=== PATIENT | female | born 1935 | race Caucasian/White ===

== ENCOUNTER 2017-03-06 19:25 | Emergency (ER) | payer MEDICARE, OTHER ==
[~2017-03-06] VITALS: Ht 165.1 cm; Wt 73.9 kg
[~2017-03-06 19:25] MED LIST: CALCAVITD PO; DILT120ERA PO; ELIQUIS5 MG PO; FLONASE ALLERG9.9 ML; LATA.005SO BOTHEYES; LATA.005SO RIGHTEYE; METO50 PO; MULVITMIND PO; Nystatin15 GM TOP; OMEP20ER PO; PRAV20 PO; VIT1CAPS12 PO; Vitamin C1000 M1 PO
[2017-03-06 20:48] LABS: Source, Urine Urostomy Bag
[2017-03-06 20:52] LABS: Bilirubin, Urine Neg (Neg); Blood, Urine 5+ (Neg); Glucose Qualitative, Urine Neg (Neg); Ketones, Urine Neg (Neg); Leukocyte Esterase, Urine 2+ (Neg); Nitrite, Urine Neg (Neg); Protein, Urine 2+ (Neg); Urobilinogen, Urine NORM (Normal)
[2017-03-06 21:01] LABS: Appearance, Urine Cloudy (Clear); Color, Urine Amber (P-Yellow)
[2017-03-06 21:03] LABS: Amorphous Light (0-Heavy); Bacteria Many /hpf; Red Blood Cells, Urine 25-50 /hpf (0-2); Squamous Epithelial Cells Not Seen /hpf (Few)
[2017-03-06] MEDS ORDERED: Keflex500 MG PO (22:33)
[2017-12-20] MEDS ORDERED: METO25ER PO (14:13)
[2017-12-20] MEDS ORDERED: ELIQUIS5 MG PO (14:14)
[2017-12-20] MEDS ORDERED: METO25 PO (14:14)
[2017-12-20] MEDS ORDERED: METO50 PO (14:14)
[2017-12-20] MEDS ORDERED: Xalatan2.5 ML BOTHEYES (14:15)
[2017-12-20] MEDS ORDERED: Multiple Vitam1 EACH PO (14:15)
[2017-12-20] MEDS ORDERED: ASCO500 PO (14:15)
== END 2017-03-06 22:45 | disposition home or self-care (01) ==
LOC: ER 19:25
PROVIDERS: Emergency Medicine
DX: N39.0 Urinary tract infection, site not specified (principal); R31.9 Hematuria, unspecified; I48.91 Unspecified atrial fibrillation; Z88.2 Allergy status to sulfonamides; Z88.8 Allergy status to other drugs, medicaments and biological substances; Z79.899 Other long term (current) drug therapy; Z87.891 Personal history of nicotine dependence
CPT/HCPCS: 81001; 87077; 87086; 87186; 99283

== ENCOUNTER → 2017-09-21 | Outpatient (CLI) | payer MEDICARE, OTHER ==
[~2017-09-21] MED LIST changes: +Keflex500 MG PO
== END ==
LOC: LAB SHORT 13:05 → LAB EV 13:05
DX: N39.0 Urinary tract infection, site not specified (principal)
CPT/HCPCS: 87077; 87086; 87186

== ENCOUNTER → 2017-09-22 | Outpatient (CLI) | payer MEDICARE, OTHER ==
[2017-09-22 12:07] LABS: Source, Urine Clean Catch
[2017-09-22 14:53] LABS: Bilirubin, Urine Neg (Neg); Blood, Urine 3+ (Neg); Glucose Qualitative, Urine Neg (Neg); Ketones, Urine Neg (Neg); Leukocyte Esterase, Urine 1+ (Neg); Nitrite, Urine Pos (Neg); Protein, Urine Neg (Neg); Specific Gravity, Urine 1.015 (1.003-1.022); Urobilinogen, Urine NORM (Normal)
[2017-09-22 15:07] LABS: Appearance, Urine Hazy (Clear); Color, Urine Yellow (P-Yellow)
[2017-09-22 15:09] LABS: Red Blood Cells, Urine 0-2 /hpf (0-2)
[2017-09-22 15:10] LABS: Bacteria Many /hpf; Squamous Epithelial Cells Few /hpf (Few)
== END ==
LOC: LAB 11:58 → LAB SHORT 11:58
PROVIDERS: Physician Assistant
DX: N39.0 Urinary tract infection, site not specified (principal)
CPT/HCPCS: 81001

== ENCOUNTER 2018-12-07 09:04 | Emergency (ER) | payer MEDICARE, OTHER ==
[~2018-12-07] VITALS: Ht 165.1 cm; Wt 72.6 kg
[~2018-12-07 09:04] MED LIST changes: +ASCO500 PO; +METO25 PO; +METO25ER PO; +Multiple Vitam1 EACH PO; +Xalatan2.5 ML BOTHEYES
[2018-12-07 09:41] LABS: BASOPHILS ABSOLUTE AUTO 0.03 K/mm3 (0.00-0.23); BASOPHILS PERCENT AUTO 0 % (0-2); EOSINOPHILS ABSOLUTE AUTO 0.06 K/mm3 (0.00-0.68); EOSINOPHILS PERCENT AUTO 1 % (0-6); Hematocrit 42.3 % (33.0-51.0); Hemoglobin 13.7 g/dL (11.5-16.0); IMMATURE GRAN ABSOLUTE AUTO 0.03 K/mm3 (0.00-0.10); IMMATURE GRAN PERCENT AUTO 0 % (0-1); LYMPHOCYTES ABSOLUTE AUTO 1.87 K/mm3 (0.84-5.20); LYMPHOCYTES PERCENT AUTO 23 % (21-46); MONOCYTES ABSOLUTE AUTO 0.72 K/mm3 (0.16-1.47); MONOCYTES PERCENT AUTO 9 % (4-13); Mean Corpuscular HGB 31.2 pg (26.0-34.0); Mean Corpuscular HGB Conc 32.4 g/dL (31.5-36.5); Mean Corpuscular Volume 96 fL (80-100); Mean Platelet Volume 11.8 fL (9.1-12.4); NEUTROPHILS ABSOLUTE AUTO 5.34 K/mm3 (1.96-9.15); NEUTROPHILS PERCENT AUTO 66 % (41-73); Platelet Count 204 K/mm3 (150-400); RDW Coefficient Variation 13.2 % (11.7-14.2); RDW Standard Deviation 47.1 fL (35.1-46.3); Red Blood Cell Count 4.39 M/mm3 (3.80-5.20); White Blood Cell Count 8.05 K/mm3 (4.00-11.30)
[2018-12-07 09:54] LABS: Alanine Aminotransfer (ALT/SGP 21 U/L (12-78); Albumin, Blood 3.4 g/dL (3.4-5.0); Albumin/Globulin Ratio 0.9 (0.8-1.8); Alk Phos 66 U/L (50-136); Anion Gap 7 mmol/L (6-16); Aspartate Aminotrans (AST/SGOT 22 U/L (12-37); Bilirubin, Total 0.6 mg/dL (0.1-1.0); Blood Urea Nitrogen 17 mg/dL (8-24); Bun/Creatinine Ratio 12.7 (12.0-20.0); CO2, Blood 23 mmol/L (21-32); Calcium, Blood 8.5 mg/dL (8.5-10.1); Chloride, Blood 111 mmol/L (98-108); Creatinine, Blood 1.34 mg/dL (0.40-1.00); Globulin, Blood 3.6 g/dL (2.2-4.0); Glomerular Filtration Rate 40 (60-); Glucose, Blood 110 mg/dL (70-99); Magnesium, Blood 1.9 mg/dL (1.6-2.4); Potassium, Blood 4.1 mmol/L (3.5-5.5); Sodium, Blood 141 mmol/L (136-145); Troponin I <0.015 ng/mL (0.000-0.040)
== END 2018-12-07 11:28 | disposition home or self-care (01) ==
LOC: ER 09:04
PROVIDERS: Emergency Medicine
DX: I48.91 Unspecified atrial fibrillation (principal); Z88.2 Allergy status to sulfonamides; Z88.8 Allergy status to other drugs, medicaments and biological substances; Z79.01 Long term (current) use of anticoagulants; Z79.899 Other long term (current) drug therapy; Z87.891 Personal history of nicotine dependence
CPT/HCPCS: 36415; 80053; 83735; 84484; 85025; 92960; 93005; 93010; 96360-59; 99285-25; J2704; J7030

== ENCOUNTER 2019-02-21 09:43 | Emergency (ER) | payer MEDICARE, OTHER ==
[~2019-02-21] VITALS: Ht 170.2 cm; Wt 81.7 kg
[~2019-02-21 09:43] MED LIST changes: -METO25 PO
[2019-02-21 10:27] LABS: BASOPHILS ABSOLUTE AUTO 0.03 K/mm3 (0.00-0.23); BASOPHILS PERCENT AUTO 0 % (0-2); EOSINOPHILS ABSOLUTE AUTO 0.04 K/mm3 (0.00-0.68); EOSINOPHILS PERCENT AUTO 0 % (0-6); Hemoglobin 13.2 g/dL (11.5-16.0); IMMATURE GRAN ABSOLUTE AUTO 0.03 K/mm3 (0.00-0.10); IMMATURE GRAN PERCENT AUTO 0 % (0-1); LYMPHOCYTES PERCENT AUTO 18 % (21-46); MONOCYTES ABSOLUTE AUTO 0.67 K/mm3 (0.16-1.47); MONOCYTES PERCENT AUTO 7 % (4-13); Mean Corpuscular HGB Conc 32.2 g/dL (31.5-36.5); Mean Corpuscular Volume 96 fL (80-100); Mean Platelet Volume 11.8 fL (9.1-12.4); NEUTROPHILS ABSOLUTE AUTO 6.99 K/mm3 (1.96-9.15); NEUTROPHILS PERCENT AUTO 74 % (41-73); Platelet Count 193 K/mm3 (150-400); RDW Standard Deviation 46.4 fL (35.1-46.3); Red Blood Cell Count 4.26 M/mm3 (3.80-5.20); White Blood Cell Count 9.46 K/mm3 (4.00-11.30)
[2019-02-21 10:42] LABS: Albumin, Blood 3.3 g/dL (3.4-5.0); Albumin/Globulin Ratio 0.9 (0.8-1.8); Bilirubin, Total 0.5 mg/dL (0.1-1.0); Bun/Creatinine Ratio 12.6 (12.0-20.0); Calcium, Blood 8.4 mg/dL (8.5-10.1); Creatinine, Blood 1.11 mg/dL (0.40-1.00); Globulin, Blood 3.5 g/dL (2.2-4.0); Potassium, Blood 3.9 mmol/L (3.5-5.5); Total Protein, Blood 6.8 g/dL (6.4-8.2)
== END 2019-02-21 13:20 | disposition home or self-care (01) ==
LOC: ER 09:43
PROVIDERS: Emergency Medicine
DX: I48.91 Unspecified atrial fibrillation (principal); Z88.2 Allergy status to sulfonamides; Z88.8 Allergy status to other drugs, medicaments and biological substances; Z79.899 Other long term (current) drug therapy; Z79.01 Long term (current) use of anticoagulants; Z87.891 Personal history of nicotine dependence
CPT/HCPCS: 36415; 71045; 80053; 83735; 85025; 92960; 93005; 93010; 96361-59; 96374-59; 96375-59; 99285-25; J2704; J3010; J7030

== ENCOUNTER 2019-03-01 13:02 | Emergency (ER) | payer MEDICARE, OTHER ==
[~2019-03-01] VITALS: Ht 167.6 cm; Wt 80.3 kg
[2019-03-01 13:57] LABS: BASOPHILS ABSOLUTE AUTO 0.03 K/mm3 (0.00-0.23); BASOPHILS PERCENT AUTO 0 % (0-2); EOSINOPHILS ABSOLUTE AUTO 0.08 K/mm3 (0.00-0.68); EOSINOPHILS PERCENT AUTO 1 % (0-6); Hematocrit 38.5 % (33.0-51.0); Hemoglobin 12.4 g/dL (11.5-16.0); IMMATURE GRAN ABSOLUTE AUTO 0.02 K/mm3 (0.00-0.10); IMMATURE GRAN PERCENT AUTO 0 % (0-1); LYMPHOCYTES ABSOLUTE AUTO 1.91 K/mm3 (0.84-5.20); LYMPHOCYTES PERCENT AUTO 24 % (21-46); MONOCYTES PERCENT AUTO 10 % (4-13); Mean Corpuscular HGB 30.6 pg (26.0-34.0); Mean Corpuscular HGB Conc 32.2 g/dL (31.5-36.5); Mean Corpuscular Volume 95 fL (80-100); Mean Platelet Volume 11.7 fL (9.1-12.4); NEUTROPHILS ABSOLUTE AUTO 5.03 K/mm3 (1.96-9.15); NEUTROPHILS PERCENT AUTO 64 % (41-73); Platelet Count 197 K/mm3 (150-400); RDW Coefficient Variation 13.1 % (11.7-14.2); RDW Standard Deviation 45.4 fL (35.1-46.3); Red Blood Cell Count 4.05 M/mm3 (3.80-5.20); White Blood Cell Count 7.87 K/mm3 (4.00-11.30)
[2019-03-01 14:17] LABS: Alanine Aminotransfer (ALT/SGP 18 U/L (12-78); Albumin, Blood 3.3 g/dL (3.4-5.0); Albumin/Globulin Ratio 0.9 (0.8-1.8); Alk Phos 78 U/L (50-136); Anion Gap 7 mmol/L (6-16); Aspartate Aminotrans (AST/SGOT 12 U/L (12-37); Bilirubin, Total 0.3 mg/dL (0.1-1.0); Blood Urea Nitrogen 16 mg/dL (8-24); Bun/Creatinine Ratio 14.3 (12.0-20.0); CO2, Blood 22 mmol/L (21-32); Calcium, Blood 8.6 mg/dL (8.5-10.1); Chloride, Blood 112 mmol/L (98-108); Creatinine, Blood 1.12 mg/dL (0.40-1.00); Globulin, Blood 3.5 g/dL (2.2-4.0); Glomerular Filtration Rate 49 (60-); Glucose, Blood 129 mg/dL (70-99); Sodium, Blood 141 mmol/L (136-145); Total Protein, Blood 6.8 g/dL (6.4-8.2); Troponin I <0.015 ng/mL (0.000-0.040)
[2019-03-01] MEDS ORDERED: TRIPLE FLEX CA1 EACH PO (14:25)
[2019-03-01] MEDS ORDERED: GLUC500 PO (14:25)
[2019-03-01] MEDS ORDERED: VIT1CAPS12 PO (14:25)
[2019-03-01] MEDS ORDERED: ASCO500 PO (14:26)
== END 2019-03-01 17:45 | disposition home or self-care (01) ==
LOC: ER 13:02
PROVIDERS: Emergency Medicine
DX: I48.91 Unspecified atrial fibrillation (principal); G47.30 Sleep apnea, unspecified; Z88.2 Allergy status to sulfonamides; Z88.8 Allergy status to other drugs, medicaments and biological substances; Z79.899 Other long term (current) drug therapy
CPT/HCPCS: 36415; 80053; 84484; 85025; 93005; 93010; 99285-25

== ENCOUNTER 2019-03-10 09:39 | Inpatient (IN) | payer MEDICARE, OTHER ==
[~2019-03-10] VITALS: Ht 165.1 cm; Wt 77.2 kg
[~2019-03-10 09:39] MED LIST changes: +GLUC500 PO; +TRIPLE FLEX CA1 EACH PO
[2019-03-10] MEDS ORDERED: Flecainide Acet50 MG PO ×2 (10:14→11:50)
[2019-03-10 10:35] LABS: BASOPHILS ABSOLUTE AUTO 0.03 K/mm3 (0.00-0.23); BASOPHILS PERCENT AUTO 0 % (0-2); EOSINOPHILS ABSOLUTE AUTO 0.02 K/mm3 (0.00-0.68); EOSINOPHILS PERCENT AUTO 0 % (0-6); Hematocrit 40.3 % (33.0-51.0); Hemoglobin 13.3 g/dL (11.5-16.0); IMMATURE GRAN ABSOLUTE AUTO 0.02 K/mm3 (0.00-0.10); IMMATURE GRAN PERCENT AUTO 0 % (0-1); LYMPHOCYTES PERCENT AUTO 18 % (21-46); MONOCYTES ABSOLUTE AUTO 0.64 K/mm3 (0.16-1.47); MONOCYTES PERCENT AUTO 8 % (4-13); Mean Corpuscular Volume 94 fL (80-100); Mean Platelet Volume 11.7 fL (9.1-12.4); NEUTROPHILS ABSOLUTE AUTO 5.59 K/mm3 (1.96-9.15); NEUTROPHILS PERCENT AUTO 73 % (41-73); Platelet Count 233 K/mm3 (150-400); RDW Coefficient Variation 13.1 % (11.7-14.2); RDW Standard Deviation 44.3 fL (35.1-46.3); Red Blood Cell Count 4.29 M/mm3 (3.80-5.20)
[2019-03-10 10:47] LABS: Albumin, Blood 3.6 g/dL (3.4-5.0); Bilirubin, Total 0.5 mg/dL (0.1-1.0); Bun/Creatinine Ratio 17.2 (12.0-20.0); Calcium, Blood 9.1 mg/dL (8.5-10.1); Creatinine, Blood 1.22 mg/dL (0.40-1.00); Globulin, Blood 3.7 g/dL (2.2-4.0); Potassium, Blood 3.7 mmol/L (3.5-5.5); Total Protein, Blood 7.3 g/dL (6.4-8.2)
[2019-03-10] MEDS ORDERED: FOSAMAX70 MG PO (15:52)
[2019-03-10] MEDS ORDERED: FLAXSEED1000 MG PO (15:53)
[2019-03-10] MEDS ORDERED: PRESERVISION L1 EACH PO (15:55)
[2019-03-10] MEDS ORDERED: VITAMIN D32000 UNI3 PO (15:57)
--- NOTE | 2019-03-11 03:54 | NUR ---
SHIFT SUMMARY PT A&O X 3; PLEASANT & COMPLIANT W/ CARE; O2 SATS >93 ON RA; LUNG SOUNDS CLEAR; DIM IN BASES; UROSTOMY RUQ PT CALLS APPROPRIATELY FOR EMPTYING; BEEFY RED STOMA; DENIES CHEST PAIN; VSS; DR. PETERS AT BEDSIDE AT START OF SHIFT; ORDERED ECG; PERFORMED AT BEDSIDE; BLOOD THINNERS TO BE HELD FOR PROCEDURE; PT NPO AT MIDNIGHT IN PREP FOR PACER PLACEMENT; PT STATES SHE IS EAGER FOR PROCEDURE; DENIES SYMPTOMS AT THIS TIME; CALL LIGHT IN REACH; BED IN LOWEST POSITION; BED ALARM ON FOR SAFETY; WILL CONTINUE TO MONITOR CLOSELY UNTIL HAND OFF TO DAY SHIFT RN.
[2019-03-11 04:19] LABS: Bun/Creatinine Ratio 20.5 (12.0-20.0); Calcium, Blood 8.6 mg/dL (8.5-10.1); Creatinine, Blood 1.22 mg/dL (0.40-1.00); Potassium, Blood 4.5 mmol/L (3.5-5.5)
--- NOTE | 2019-03-11 12:00 | NUR ---
PT TO THE CENTER FOR PACER PLACEMENT. SHE IS AWAKE,ALERT & ORIENTED AT THIS TIME. PT'S IS AT THE BEDSIDE. PT DENIES ANY CP/SOB,VSS.
--- NOTE | 2019-03-11 17:21 | NUR ---
SHIFT SUMMARY PT WENT FOR PACER PLACEMENT TODAY. PACE MAKER IS PLACED TO THE LEFT CHEST WALL, RSG REMAINS C/D/I, NO S/S OF HEMATOMA NOTED AT OR AROUND THE SITE. PT WAS GIVEN TYLENOL FOR MINOR MUSCLE DISCOMFORT. SHE CONTINUES TO DENY CP/SOB. VSS, ON ROOM AIR, SBA IN THE ROOM. BED ALARM IS ON FOR SAFETY DUE TO OCCASIONAL FORGETFULNESS. PT'S IS AT THE BEDSIDE. CALL LIGHT IN REACH, WCTM
[2019-03-12 05:50] LABS: BASOPHILS ABSOLUTE AUTO 0.03 K/mm3 (0.00-0.23); BASOPHILS PERCENT AUTO 0 % (0-2); EOSINOPHILS ABSOLUTE AUTO 0.07 K/mm3 (0.00-0.68); EOSINOPHILS PERCENT AUTO 1 % (0-6); Hematocrit 40.2 % (33.0-51.0); Hemoglobin 13.2 g/dL (11.5-16.0); IMMATURE GRAN ABSOLUTE AUTO 0.02 K/mm3 (0.00-0.10); IMMATURE GRAN PERCENT AUTO 0 % (0-1); LYMPHOCYTES ABSOLUTE AUTO 1.29 K/mm3 (0.84-5.20); LYMPHOCYTES PERCENT AUTO 17 % (21-46); MONOCYTES ABSOLUTE AUTO 0.82 K/mm3 (0.16-1.47); MONOCYTES PERCENT AUTO 11 % (4-13); Mean Corpuscular HGB 30.9 pg (26.0-34.0); Mean Corpuscular HGB Conc 32.8 g/dL (31.5-36.5); Mean Corpuscular Volume 94 fL (80-100); Mean Platelet Volume 11.6 fL (9.1-12.4); NEUTROPHILS ABSOLUTE AUTO 5.49 K/mm3 (1.96-9.15); NEUTROPHILS PERCENT AUTO 71 % (41-73); Platelet Count 194 K/mm3 (150-400); RDW Coefficient Variation 12.7 % (11.7-14.2); Red Blood Cell Count 4.27 M/mm3 (3.80-5.20); White Blood Cell Count 7.72 K/mm3 (4.00-11.30)
[2019-03-12 06:04] LABS: Prothrombin Time Results 10.7 Sec (9.7-11.5)
[2019-03-12 06:07] LABS: Bun/Creatinine Ratio 18.8 (12.0-20.0); Calcium, Blood 8.2 mg/dL (8.5-10.1); Creatinine, Blood 1.12 mg/dL (0.40-1.00); Potassium, Blood 3.9 mmol/L (3.5-5.5)
--- NOTE | 2019-03-12 07:42 | NUR ---
SHIFT SUMMARY PT ALERT AND ORIENTED TO SELF; FORGETFUL AT TIMES; STATUS POST PACER L CHEST WALL; SLING IN PLACE; SMALL AMOUNT OF DRIED BLOOD NOTED ON DRESSING; NO CHANGE T/O SHIFT; PT EDUCATED SEVERAL TIMES NOT TO USE L ARM AND PT VERBALIZED UNDERSTANDING; PT C/O OF ACHE TO CHEST WALL; DENIES CHEST PAIN; VSS; O2 SATS >93 ON RA; NO ACUTE CHANGES; PT DENIES NEEDS AT THIS TIME; CALL LIGHT IN REACH; BED IN LOWEST POSITION; BED ALARM ON; REPORT GIVEN TO DAY SHIFT RN.
--- NOTE | 2019-03-12 09:38 | NUR ---
BEGINNING OF SHIFT Assumed care at 0700. Bedside report received from Genia VELASQUEZ. Dr. Link in to see pt early this AM. States eliquis may be restrated tomorrow evening and pt is clear to go home from cardiology standpoint.
--- NOTE | 2019-03-12 11:59 | NUR ---
DISCHARGE Pt discharged home from PCU. Pt departed with her spouse. Discharge education provided to pt and spouse, including pacemaker activity restrictions. Pt escorted to vehicle via wheelchair, accompanied by Edilma STARR and pt's spouse. No new medications.
== END 2019-03-12 11:50 | disposition home or self-care (01) | DRG 243 ==
LOC: ER 09:39 → PCU 09:40
PROVIDERS: Emergency Medicine; Internal Medicine Cardiovascular Disease; ADMIT Internal Medicine Endocrinology, Diabetes & Metabolism
PROC: 0JH606Z Insertion of Pacemaker, Dual Chamber into Chest Subcutaneous Tissue and Fascia, Open Approach (ICD-10-PCS; principal; 2019-03-11)
PROC: 02HK3JZ Insertion of Pacemaker Lead into Right Ventricle, Percutaneous Approach (ICD-10-PCS; 2019-03-11)
PROC: 02H63JZ Insertion of Pacemaker Lead into Right Atrium, Percutaneous Approach (ICD-10-PCS; 2019-03-11)
PROC: 3E0132A Introduction of Anti-Infective Envelope into Subcutaneous Tissue, Percutaneous Approach (ICD-10-PCS; 2019-03-11)
DX: I49.5 Sick sinus syndrome (principal); I48.20 Chronic atrial fibrillation, unspecified; G47.33 Obstructive sleep apnea (adult) (pediatric); I12.9 Hypertensive chronic kidney disease with stage 1 through stage 4 chronic kidney disease, or unspecified chronic kidney disease; E87.6 Hypokalemia; N18.3 Chronic kidney disease, stage 3 (moderate); Z87.891 Personal history of nicotine dependence
CPT/HCPCS: 33208; 36415; 71045; 71046; 76937; 80048; 80053; 83735; 84443; 85025; 85610; 93005; 93010; 96365; 96376; 99152; 99153; 99285-25; A9270; C1785; C1898; J0690; J1644; J2250; J3010; J7040; J7050

== ENCOUNTER 2019-03-23 20:38 | Emergency (ER) | payer MEDICARE, OTHER ==
[~2019-03-23] VITALS: Ht 165.1 cm; Wt 77.1 kg
[~2019-03-23 20:38] MED LIST changes: +FLAXSEED1000 MG PO; +FOSAMAX70 MG PO; +Flecainide Acet50 MG PO; +PRESERVISION L1 EACH PO; +VITAMIN D32000 UNI3 PO
[2019-03-23 21:18] LABS: BASOPHILS ABSOLUTE AUTO 0.03 K/mm3 (0.00-0.23); BASOPHILS PERCENT AUTO 0 % (0-2); EOSINOPHILS PERCENT AUTO 1 % (0-6); Hematocrit 38.9 % (33.0-51.0); Hemoglobin 13.1 g/dL (11.5-16.0); IMMATURE GRAN ABSOLUTE AUTO 0.02 K/mm3 (0.00-0.10); IMMATURE GRAN PERCENT AUTO 0 % (0-1); LYMPHOCYTES ABSOLUTE AUTO 2.19 K/mm3 (0.84-5.20); LYMPHOCYTES PERCENT AUTO 26 % (21-46); MONOCYTES ABSOLUTE AUTO 0.73 K/mm3 (0.16-1.47); MONOCYTES PERCENT AUTO 9 % (4-13); Mean Corpuscular HGB 30.9 pg (26.0-34.0); Mean Corpuscular HGB Conc 33.7 g/dL (31.5-36.5); Mean Corpuscular Volume 92 fL (80-100); Mean Platelet Volume 11.6 fL (9.1-12.4); NEUTROPHILS ABSOLUTE AUTO 5.42 K/mm3 (1.96-9.15); NEUTROPHILS PERCENT AUTO 64 % (41-73); Platelet Count 187 K/mm3 (150-400); RDW Coefficient Variation 12.7 % (11.7-14.2); RDW Standard Deviation 43.1 fL (35.1-46.3); Red Blood Cell Count 4.24 M/mm3 (3.80-5.20); White Blood Cell Count 8.49 K/mm3 (4.00-11.30)
[2019-03-23 21:43] LABS: Alanine Aminotransfer (ALT/SGP 17 U/L (12-78); Albumin, Blood 3.4 g/dL (3.4-5.0); Albumin/Globulin Ratio 0.9 (0.8-1.8); Alk Phos 77 U/L (50-136); Anion Gap 9 mmol/L (6-16); Aspartate Aminotrans (AST/SGOT 19 U/L (12-37); Bilirubin, Total 0.3 mg/dL (0.1-1.0); Blood Urea Nitrogen 18 mg/dL (8-24); Bun/Creatinine Ratio 15.8 (12.0-20.0); CO2, Blood 21 mmol/L (21-32); Calcium, Blood 8.7 mg/dL (8.5-10.1); Chloride, Blood 110 mmol/L (98-108); Creatinine, Blood 1.14 mg/dL (0.40-1.00); Globulin, Blood 3.6 g/dL (2.2-4.0); Glomerular Filtration Rate 48 (60-); Glucose, Blood 104 mg/dL (70-99); Potassium, Blood 3.6 mmol/L (3.5-5.5); Sodium, Blood 140 mmol/L (136-145); Troponin I <0.015 ng/mL (0.000-0.040)
== END 2019-03-23 22:18 | disposition home or self-care (01) ==
LOC: ER 20:38
PROVIDERS: Physician Assistant
DX: I48.91 Unspecified atrial fibrillation (principal); J44.9 Chronic obstructive pulmonary disease, unspecified; G47.30 Sleep apnea, unspecified; Z79.899 Other long term (current) drug therapy; Z88.2 Allergy status to sulfonamides; Z88.8 Allergy status to other drugs, medicaments and biological substances; Z87.891 Personal history of nicotine dependence; Z79.01 Long term (current) use of anticoagulants
CPT/HCPCS: 36415; 80053; 83735; 84484; 85025; 92960; 93005; 93010; 99285-25; J2704; J7030

== ENCOUNTER 2019-03-31 19:28 | Emergency (ER) | payer MEDICARE, OTHER ==
[~2019-03-31] VITALS: Ht 167.6 cm; Wt 73.5 kg
[2019-03-31 20:03] LABS: BASOPHILS ABSOLUTE AUTO 0.02 K/mm3 (0.00-0.23); BASOPHILS PERCENT AUTO 0 % (0-2); EOSINOPHILS ABSOLUTE AUTO 0.08 K/mm3 (0.00-0.68); EOSINOPHILS PERCENT AUTO 1 % (0-6); Hematocrit 41.8 % (33.0-51.0); Hemoglobin 13.8 g/dL (11.5-16.0); IMMATURE GRAN ABSOLUTE AUTO 0.02 K/mm3 (0.00-0.10); IMMATURE GRAN PERCENT AUTO 0 % (0-1); LYMPHOCYTES ABSOLUTE AUTO 1.83 K/mm3 (0.84-5.20); LYMPHOCYTES PERCENT AUTO 22 % (21-46); MONOCYTES ABSOLUTE AUTO 0.68 K/mm3 (0.16-1.47); MONOCYTES PERCENT AUTO 8 % (4-13); Mean Corpuscular HGB 31.1 pg (26.0-34.0); Mean Corpuscular Volume 94 fL (80-100); Mean Platelet Volume 11.5 fL (9.1-12.4); NEUTROPHILS ABSOLUTE AUTO 5.58 K/mm3 (1.96-9.15); NEUTROPHILS PERCENT AUTO 68 % (41-73); Platelet Count 190 K/mm3 (150-400); RDW Coefficient Variation 12.9 % (11.7-14.2); RDW Standard Deviation 44.6 fL (35.1-46.3); Red Blood Cell Count 4.44 M/mm3 (3.80-5.20); White Blood Cell Count 8.21 K/mm3 (4.00-11.30)
[2019-03-31 20:23] LABS: Alanine Aminotransfer (ALT/SGP 19 U/L (12-78); Albumin, Blood 3.7 g/dL (3.4-5.0); Alk Phos 71 U/L (50-136); Anion Gap 3 mmol/L (6-16); Aspartate Aminotrans (AST/SGOT 24 U/L (12-37); Bilirubin, Total 0.3 mg/dL (0.1-1.0); Blood Urea Nitrogen 23 mg/dL (8-24); Bun/Creatinine Ratio 18.7 (12.0-20.0); CO2, Blood 25 mmol/L (21-32); Calcium, Blood 8.5 mg/dL (8.5-10.1); Chloride, Blood 112 mmol/L (98-108); Creatinine, Blood 1.23 mg/dL (0.40-1.00); Globulin, Blood 3.7 g/dL (2.2-4.0); Glomerular Filtration Rate 44 (60-); Glucose, Blood 117 mg/dL (70-99); Potassium, Blood 3.7 mmol/L (3.5-5.5); Sodium, Blood 140 mmol/L (136-145); Total Protein, Blood 7.4 g/dL (6.4-8.2); Troponin I <0.015 ng/mL (0.000-0.040)
== END 2019-03-31 21:06 | disposition home or self-care (01) ==
LOC: ER 19:28
PROVIDERS: Emergency Medicine
DX: I48.91 Unspecified atrial fibrillation (principal); G47.30 Sleep apnea, unspecified; Z88.2 Allergy status to sulfonamides; Z88.8 Allergy status to other drugs, medicaments and biological substances; Z79.899 Other long term (current) drug therapy; Z79.01 Long term (current) use of anticoagulants; Z87.891 Personal history of nicotine dependence
CPT/HCPCS: 36415; 80053; 83880; 84484; 85025; 92960; 93005; 93010; 99285-25; J2704; J7030

== ENCOUNTER 2019-06-07 11:44 | Inpatient (IN) | payer MEDICARE, OTHER ==
[~2019-06-07] VITALS: Ht 165.1 cm; Wt 79.7 kg
[~2019-06-07 11:44] MED LIST changes: -Amiodarone HCl200 MG PO; -CIPR500 PO; -FOSAMAX70 MG PO; -Glucosamine H1500 MG PO; -METOPROLOL SUCC25 MG PO
[2019-06-07 12:59] LABS: Source, Urine Urostomy Bag
[2019-06-07 13:10] LABS: Bilirubin, Urine Neg (Neg); Blood, Urine 5+ (Neg); Glucose Qualitative, Urine Neg (Neg); Ketones, Urine Neg (Neg); Leukocyte Esterase, Urine 3+ (Neg); Nitrite, Urine Neg (Neg); Protein, Urine 3+ (Neg); Specific Gravity, Urine 1.015 (1.003-1.022); Urobilinogen, Urine NORM (Normal)
[2019-06-07 13:48] LABS: Appearance, Urine Cloudy (Clear); Color, Urine Yellow (P-Yellow)
[2019-06-07 13:49] LABS: Bacteria Mod /hpf; Red Blood Cells, Urine 25-50 /hpf (0-2); Squamous Epithelial Cells Not Seen /hpf (Few)
[2019-06-07 13:52] LABS: Transitional Epithelial Cells Few /hpf (0-Rare)
[2019-06-07 13:53] LABS: Triple Phosphate Crystals Mod /hpf
[2019-06-07] MEDS ORDERED: FOSAMAX70 MG PO (15:19)
[2019-06-07] MEDS ORDERED: METOPROLOL SUCC25 MG PO (15:20)
[2019-06-07] MEDS ORDERED: ELIQUIS5 MG PO (15:21)
[2019-06-07] MEDS ORDERED: Amiodarone HCl200 MG PO (15:22)
[2019-06-07] MEDS ORDERED: Glucosamine H1500 MG PO (15:23)
[2019-06-07] MEDS ORDERED: Flecainide Acet50 MG PO (15:55)
--- NOTE | 2019-06-07 18:18 | NUR ---
PT QUITE PLEASANT SINCE ADMIT AT 1615. CLOUDY YELLOW URINE. PT EMPTIES OWN UROSTOMY BAG. DR HAYS IN TO SEE THIS AFT. NEW IV PLACED IN RT F/A. PT LIGHTLY SHAKEY R/T STATED BEING COLD. DID CHECK TEMP. 98.2. PT STATES IS ALWAYS COLD, MORE SO AT THIS TIME. TURNED HEAT UP. BROUGHT WARM BLANKET CONTINUE TO MONITOR. NO OTHER CONCERNS AT THIS TIME. BED IN LOW POSITION, CALL LITE IN REACH, CALLS APPROP
[2019-06-08 04:45] LABS: BASOPHILS ABSOLUTE AUTO 0.02 K/mm3 (0.00-0.23); BASOPHILS PERCENT AUTO 0 % (0-2); EOSINOPHILS PERCENT AUTO 0 % (0-6); Hematocrit 31.4 % (33.0-51.0); Hemoglobin 10.2 g/dL (11.5-16.0); IMMATURE GRAN ABSOLUTE AUTO 0.07 K/mm3 (0.00-0.10); IMMATURE GRAN PERCENT AUTO 1 % (0-1); LYMPHOCYTES ABSOLUTE AUTO 1.04 K/mm3 (0.84-5.20); LYMPHOCYTES PERCENT AUTO 9 % (21-46); MONOCYTES ABSOLUTE AUTO 1.21 K/mm3 (0.16-1.47); MONOCYTES PERCENT AUTO 10 % (4-13); Mean Corpuscular HGB Conc 32.5 g/dL (31.5-36.5); Mean Platelet Volume 11.8 fL (9.1-12.4); NEUTROPHILS ABSOLUTE AUTO 9.28 K/mm3 (1.96-9.15); NEUTROPHILS PERCENT AUTO 80 % (41-73); Platelet Count 137 K/mm3 (150-400); RDW Coefficient Variation 13.7 % (11.7-14.2); RDW Standard Deviation 48.1 fL (35.1-46.3); Red Blood Cell Count 3.29 M/mm3 (3.80-5.20); White Blood Cell Count 11.62 K/mm3 (4.00-11.30)
[2019-06-08 04:47] LABS: Mean Corpuscular Volume 95 fL (80-100)
[2019-06-08 05:04] LABS: Bun/Creatinine Ratio 14.5 (12.0-20.0); Calcium, Blood 7.3 mg/dL (8.5-10.1); Creatinine, Blood 1.52 mg/dL (0.40-1.00); Potassium, Blood 3.9 mmol/L (3.5-5.5)
--- NOTE | 2019-06-08 05:06 | NUR ---
SHIFT SUMMARY ADMITTED FOR SEPSIS - UTI. FULL CODE. ENTERIC PRECAUTIONS BECAUSE SHE REPORTED DIARRHEA AT HOME IN THE AM, NO BM SINCE ADMIT - ENTERIC PRECAUTIONS MAY BE LIFTED AT 1400 HOURS IF UNABLE TO OBTAIN SPECIMEN. SHE IS ON TELEMETRY: PACED @ 60 BPM. I HAVE NOTED SEVERAL EPISODES OF CONFUSION THIS SHIFT. NS IS INFUSING @ 100 ML/HR. IV ANTIBIOTICS ARE SCHEDULED. SHE TAKES ELIQUIS FOR AFIB. UROSTOMY IN RLQ. TRENDS HYPOTENSIVE.
--- NOTE | 2019-06-08 14:41 | NUR ---
Patient is sitting up in bed and alert. Patient tells me about her medical condition but also states that she really doesn't understand what she has. Patient talks about her and her 's careers, about their family and about her spiritual journey. Patient explains about how lonely she is because the Covid-19 restrictions and that she cried when she was told that her could not stay with her in the hospital. I listen empathically, normalize patient's experience, reinforced helpful attitudes and practices and provided pastoral student support counselor, companionship and prayer. Patient responds well and shows signs of an elevated mood. I will continue to remain available to patient and family.
--- NOTE | 2019-06-08 19:44 | NUR ---
SHIFT SUMMARY: NO ACUTE CHANGES TO REPORT THIS SHIFT. PT A&O X2-3; OCC CONFUSION, FORGETFUL; COOPERATIVE WITH CARE. MEDICATED FOR FEVER PER EMAR. NEPROSTOMY TO RLQ; APPLIANCE CHANGED THIS SHIFT; SKIN WNL. PT INDEPENDENT IN ROOM. FLUIDS & IV ABX CONTINUING. REPORT GIVEN TO ONCOMING RN.
--- NOTE | 2019-06-09 07:26 | NUR ---
06/09/19 0600 PT PLEASANT BUT MORE CONFUSED AFTER SUNSET. BED ALARM WAS ON. UROSTOMY BAG WAS EMPTIED SEVERAL TIMES LAST NIGHT BY PT WITH MINIMAL ASSISTENCE NEEDED. TAKING ORAL INTAKE WELL. NO COMPLAINTS OF DISCOMFORT OR OTHER PROBLEMS. APPEARS MORE ALERT THIS AM THAN LAST NIGHT.
--- NOTE | 2019-06-09 19:47 | NUR ---
SHIFT SUMMARY: NO ACUTE CHANGES TO REPORT THIS SHIFT. PT A&O; OCC CONFUSION/FORGETFUL; CALM AND COOPERATIVE WITH CARE; INDEPENDENT IN ROOM. UROSTOMY TO RLQ; PATENT & DRAINING; PATIENT SELF-MANAGES c MINIMAL ASSISTANCE. TELE D/C'd THIS SHIFT; PACED @ 60 PER CEMETERY COUNSELOR PRIOR TO D/C. REHYDRATION & IV ABX CONTINUING. REPORT GIVEN TO ONCOMING RN.
[2019-06-10 04:18] LABS: BASOPHILS ABSOLUTE AUTO 0.02 K/mm3 (0.00-0.23); BASOPHILS PERCENT AUTO 0 % (0-2); EOSINOPHILS ABSOLUTE AUTO 0.11 K/mm3 (0.00-0.68); EOSINOPHILS PERCENT AUTO 2 % (0-6); Hemoglobin 10.1 g/dL (11.5-16.0); IMMATURE GRAN ABSOLUTE AUTO 0.05 K/mm3 (0.00-0.10); IMMATURE GRAN PERCENT AUTO 1 % (0-1); LYMPHOCYTES ABSOLUTE AUTO 1.12 K/mm3 (0.84-5.20); LYMPHOCYTES PERCENT AUTO 20 % (21-46); MONOCYTES ABSOLUTE AUTO 0.68 K/mm3 (0.16-1.47); MONOCYTES PERCENT AUTO 12 % (4-13); Mean Corpuscular HGB 31.2 pg (26.0-34.0); Mean Corpuscular HGB Conc 33.7 g/dL (31.5-36.5); Mean Corpuscular Volume 93 fL (80-100); Mean Platelet Volume 11.4 fL (9.1-12.4); NEUTROPHILS ABSOLUTE AUTO 3.73 K/mm3 (1.96-9.15); NEUTROPHILS PERCENT AUTO 65 % (41-73); Platelet Count 170 K/mm3 (150-400); RDW Coefficient Variation 13.6 % (11.7-14.2); RDW Standard Deviation 46.7 fL (35.1-46.3); Red Blood Cell Count 3.24 M/mm3 (3.80-5.20); White Blood Cell Count 5.71 K/mm3 (4.00-11.30)
[2019-06-10 04:35] LABS: Albumin, Blood 2.3 g/dL (3.4-5.0); Anion Gap 7 mmol/L (6-16); Blood Urea Nitrogen 14 mg/dL (8-24); Bun/Creatinine Ratio 10.2 (12.0-20.0); CO2, Blood 20 mmol/L (21-32); Calcium, Blood 7.3 mg/dL (8.5-10.1); Chloride, Blood 116 mmol/L (98-108); Creatinine, Blood 1.37 mg/dL (0.40-1.00); Glomerular Filtration Rate 39 (60-); Glucose, Blood 83 mg/dL (70-99); Magnesium, Blood 1.8 mg/dL (1.6-2.4); Phosphorus, Blood 1.6 mg/dL (2.5-4.9); Potassium, Blood 3.7 mmol/L (3.5-5.5); Sodium, Blood 143 mmol/L (136-145)
--- NOTE | 2019-06-10 04:40 | NUR ---
SHIFT SUMMARY PT IS A/O X3; PT REMEMBERS WHERE SHE IS AND WHY BUT FREQUENTLY FORGETS WHERE HER IS, HOW TO USE CALL LIGHT, ETC. PT HAS BEEN REORIENTED PRN. PT IS IND. IN ROOM WITH OCC STANDBY FOR IV LINE. UROSTOMY IN PLACE; PT MANAGES MOSTLY ON HER OWN. NO ACUTE CHANGES OVERNIGHT. ASSISTED WITH ALD'S PRN.
--- NOTE | 2019-06-10 08:50 | NUR ---
PT QUITE PLEASANT THIS AM. SOME WEEPY WNEN CONCERNS OF . WANTS TO TO GO HOME. CALL AND VISIT WITH IMPROVED MOOD. ALERT TO PLACE FAM, SITUATION, SOME CONFUSION ON SPECIFIC DATES. KNOWS CHERY PRESIDENT. H/R REG, NO MURMER NOTED. NO TELE. LUNGS CLEAR, UPPER, MID, CRACKLES IN BASES BILAT. ON R.A. RESP EASY, UNLABORED. BT X 4 LAST BM YEST. SOME LOOSE. VOIDS UROSTOMY, STOMA PINK, NO BLOOD NOTED. BAG DRAINING CLEAR YELLOW FLUID. PT SELF CARE. INDEPENDANT IN ROOM. BED IN LOW POSITION, CALL LITE IN [facility] [place], CALLS APPROP DID GIVE I/S FOR CRACKLES IN LUNGS, INSTRUCTED TO USE Q CNS Response. PT WORKING TO ACCOMPLISH.
[2019-06-10] MEDS ORDERED: CIPR500 PO (13:37)
--- NOTE | 2019-06-10 14:00 | NUR ---
DISCHARGE REVIEWED WITH PT . SHE VERBALIZED UNDERSTANDING MEDS AND INST. CALLED HUSB, GAVE HIM BRIEF UPDATE, EXPLAINED DISCHARGE PAPERS WITH HER AND CAN READ INSTRUCT. IV PULLED INTACT. NO TELE. PT WALKED TO DOOR AT 1400 BY JESSICA.
== END 2019-06-10 14:02 | disposition home or self-care (01) | DRG 871 ==
LOC: ER 11:44 → MEDS 14:36
PROVIDERS: Emergency Medicine; Internal Medicine Gastroenterology; ADMIT Internal Medicine
DX: A41.81 Sepsis due to Enterococcus (principal); G93.41 Metabolic encephalopathy; I48.21 Permanent atrial fibrillation; N17.9 Acute kidney failure, unspecified; N39.0 Urinary tract infection, site not specified; Z16.39 Resistance to other specified antimicrobial drug; E78.5 Hyperlipidemia, unspecified; G47.33 Obstructive sleep apnea (adult) (pediatric); I10 Essential (primary) hypertension; R65.20 Severe sepsis without septic shock; Z85.038 Personal history of other malignant neoplasm of large intestine; Z85.51 Personal history of malignant neoplasm of bladder; Z87.891 Personal history of nicotine dependence; Z90.49 Acquired absence of other specified parts of digestive tract; Z93.9 Artificial opening status, unspecified; B96.1 Klebsiella pneumoniae [K. pneumoniae] as the cause of diseases classified elsewhere; Z79.01 Long term (current) use of anticoagulants; Z95.0 Presence of cardiac pacemaker
CPT/HCPCS: 36415; 80048; 80053; 80069; 81001; 83605; 83735; 84145; 85025; 87040; 87077; 87086; 87186; 96361; 96365; 99285-25; A9270; J0696; J2543; J7030

== ENCOUNTER → 2019-06-07 | Outpatient (CLI) | payer MEDICARE, OTHER ==
[~2019-06-07] MED LIST changes: +Amiodarone HCl200 MG PO; +CIPR500 PO; +Glucosamine H1500 MG PO; +METOPROLOL SUCC25 MG PO; -TRIPLE FLEX CA1 EACH PO
== END ==
LOC: LAB EV 18:04 → LAB SHORT 18:04
DX: I95.9 Hypotension, unspecified (principal); R41.82 Altered mental status, unspecified
CPT/HCPCS: 87077; 87086; 87186

== ENCOUNTER 2019-06-13 12:16 | Emergency (ER) | payer MEDICARE, OTHER ==
[~2019-06-13] VITALS: Ht 167.6 cm; Wt 72.6 kg
[~2019-06-13 12:16] MED LIST changes: +Amiodarone HCl200 MG PO; +CIPR500 PO; +FOSAMAX70 MG PO; +Glucosamine H1500 MG PO; +METOPROLOL SUCC25 MG PO
[2019-06-13 13:52] LABS: Source, Urine Clean Catch
[2019-06-13 13:53] LABS: BASOPHILS ABSOLUTE AUTO 0.04 K/mm3 (0.00-0.23); BASOPHILS PERCENT AUTO 1 % (0-2); EOSINOPHILS ABSOLUTE AUTO 0.12 K/mm3 (0.00-0.68); EOSINOPHILS PERCENT AUTO 1 % (0-6); Hemoglobin 12.1 g/dL (11.5-16.0); IMMATURE GRAN ABSOLUTE AUTO 0.17 K/mm3 (0.00-0.10); IMMATURE GRAN PERCENT AUTO 2 % (0-1); LYMPHOCYTES ABSOLUTE AUTO 1.46 K/mm3 (0.84-5.20); LYMPHOCYTES PERCENT AUTO 17 % (21-46); MONOCYTES ABSOLUTE AUTO 0.63 K/mm3 (0.16-1.47); MONOCYTES PERCENT AUTO 7 % (4-13); Mean Corpuscular HGB 30.6 pg (26.0-34.0); Mean Corpuscular HGB Conc 32.7 g/dL (31.5-36.5); Mean Corpuscular Volume 94 fL (80-100); Mean Platelet Volume 11.2 fL (9.1-12.4); NEUTROPHILS ABSOLUTE AUTO 6.24 K/mm3 (1.96-9.15); NEUTROPHILS PERCENT AUTO 72 % (41-73); Platelet Count 263 K/mm3 (150-400); RDW Coefficient Variation 13.5 % (11.7-14.2); RDW Standard Deviation 46.5 fL (35.1-46.3); Red Blood Cell Count 3.95 M/mm3 (3.80-5.20); White Blood Cell Count 8.66 K/mm3 (4.00-11.30)
[2019-06-13 13:55] LABS: Bilirubin, Urine Neg (Neg); Blood, Urine 3+ (Neg); Glucose Qualitative, Urine Neg (Neg); Ketones, Urine Neg (Neg); Leukocyte Esterase, Urine Neg (Neg); Nitrite, Urine Neg (Neg); Protein, Urine 1+ (Neg); Specific Gravity, Urine 1.015 (1.003-1.022); Urobilinogen, Urine NORM (Normal)
[2019-06-13 14:11] LABS: Appearance, Urine Clear (Clear); Color, Urine Yellow (P-Yellow)
[2019-06-13 14:12] LABS: Albumin/Globulin Ratio 0.7 (0.8-1.8); Bilirubin, Total 0.2 mg/dL (0.1-1.0); Bun/Creatinine Ratio 8.1 (12.0-20.0); Calcium, Blood 8.6 mg/dL (8.5-10.1); Creatinine, Blood 1.36 mg/dL (0.40-1.00); Globulin, Blood 4.3 g/dL (2.2-4.0); Potassium, Blood 3.9 mmol/L (3.5-5.5); Total Protein, Blood 7.3 g/dL (6.4-8.2)
[2019-06-13 14:13] LABS: Bacteria Few /hpf; Squamous Epithelial Cells Rare /hpf (Few)
== END 2019-06-13 16:16 | disposition home or self-care (01) ==
LOC: ER 12:16
PROVIDERS: Physician Assistant
DX: R41.0 Disorientation, unspecified (principal); I48.20 Chronic atrial fibrillation, unspecified; I10 Essential (primary) hypertension; E78.5 Hyperlipidemia, unspecified; G47.33 Obstructive sleep apnea (adult) (pediatric); Z87.891 Personal history of nicotine dependence; Z79.899 Other long term (current) drug therapy
CPT/HCPCS: 36415; 80053; 81001; 85025; 87086; 93005; 93010; 99283-25

== ENCOUNTER 2020-02-03 13:44 | Emergency (ER) | payer MEDICARE, OTHER ==
[~2020-02-03] VITALS: Ht 167.6 cm; Wt 75.8 kg
[2020-02-03 14:16] LABS: Source, Urine Urostomy Bag
[2020-02-03 14:23] LABS: Appearance, Urine Turbid (Clear); Bilirubin, Urine Neg (Neg); Blood, Urine 4+ (Neg); Color, Urine Yellow (P-Yellow); Glucose Qualitative, Urine Neg (Neg); Ketones, Urine Neg (Neg); Leukocyte Esterase, Urine 3+ (Neg); Nitrite, Urine Pos (Neg); Protein, Urine 2+ (Neg); Specific Gravity, Urine 1.015 (1.003-1.022); Urobilinogen, Urine NORM (Normal); pH, Urine 6.5 (5.0-8.0)
[2020-02-03 14:23] LABS: BASOPHILS ABSOLUTE AUTO 0.02 K/mm3 (0.00-0.23); BASOPHILS PERCENT AUTO 0 % (0-2); EOSINOPHILS PERCENT AUTO 0 % (0-6); Hematocrit 38.8 % (33.0-51.0); Hemoglobin 12.6 g/dL (11.5-16.0); IMMATURE GRAN ABSOLUTE AUTO 0.03 K/mm3 (0.00-0.10); IMMATURE GRAN PERCENT AUTO 1 % (0-1); LYMPHOCYTES ABSOLUTE AUTO 0.72 K/mm3 (0.84-5.20); LYMPHOCYTES PERCENT AUTO 11 % (21-46); MONOCYTES ABSOLUTE AUTO 0.38 K/mm3 (0.16-1.47); MONOCYTES PERCENT AUTO 6 % (4-13); Mean Corpuscular HGB 29.9 pg (26.0-34.0); Mean Corpuscular HGB Conc 32.5 g/dL (31.5-36.5); Mean Corpuscular Volume 92 fL (80-100); Mean Platelet Volume 11.6 fL (9.1-12.4); NEUTROPHILS ABSOLUTE AUTO 5.25 K/mm3 (1.96-9.15); NEUTROPHILS PERCENT AUTO 82 % (41-73); Platelet Count 180 K/mm3 (150-400); RDW Coefficient Variation 12.2 % (11.7-14.2); RDW Standard Deviation 42.1 fL (35.1-46.3); Red Blood Cell Count 4.21 M/mm3 (3.80-5.20)
[2020-02-03 14:30] LABS: White Blood Cells, Urine TNTC /hpf (0-5)
[2020-02-03 14:31] LABS: Bacteria Many /hpf; Squamous Epithelial Cells Not Seen /hpf (Few)
[2020-02-03] MEDS ORDERED: DONEPEZIL HCL5 M2 PO (14:33)
[2020-02-03] MEDS ORDERED: LATA.005SO BOTHEYES (14:34)
[2020-02-03] MEDS ORDERED: AMIODARONE HCL200 M1 PO (14:34)
[2020-02-03] MEDS ORDERED: VIT1CAPS12 (14:34)
[2020-02-03] MEDS ORDERED: Vitamin D2000 UNIT PO (14:35)
[2020-02-03 14:40] LABS: Albumin, Blood 3.2 g/dL (3.4-5.0); Albumin/Globulin Ratio 0.8 (0.8-1.8); Bilirubin, Total 0.5 mg/dL (0.1-1.0); Bun/Creatinine Ratio 14.5 (12.0-20.0); Calcium, Blood 8.9 mg/dL (8.5-10.1); Creatinine, Blood 1.73 mg/dL (0.40-1.00); Globulin, Blood 4.1 g/dL (2.2-4.0); Potassium, Blood 4.6 mmol/L (3.5-5.5); Total Protein, Blood 7.3 g/dL (6.4-8.2)
[2020-02-03 16:10] LABS: Influenza A, PCR Negative (NEGATIVE); Influenza B, PCR Negative (NEGATIVE); Resp Syncytial Virus, PCR Negative (NEGATIVE); SARS-Cov-2 (COVID-19) PCR, MMC Positive (NEGATIVE)
[2020-02-03] MEDS ORDERED: CEFD300 PO (16:36)
== END 2020-02-03 16:50 | disposition home or self-care (01) ==
LOC: ER 13:44
PROVIDERS: Emergency Medicine
DX: U07.1 COVID-19 (principal); N39.0 Urinary tract infection, site not specified; I10 Essential (primary) hypertension; E78.5 Hyperlipidemia, unspecified; Z95.0 Presence of cardiac pacemaker; Z88.2 Allergy status to sulfonamides; Z79.01 Long term (current) use of anticoagulants; Z79.899 Other long term (current) drug therapy
CPT/HCPCS: 0241U; 36415; 71045; 80053; 81001; 83605; 85025; 87040; 87077; 87086; 87186; 93005; 93010; 96365; 99285-25; J0696; J7030

== ENCOUNTER 2020-02-06 14:18 | Inpatient (IN) | payer MEDICARE, OTHER ==
[~2020-02-06] VITALS: Ht 170.2 cm; Wt 74.4 kg
[~2020-02-06 14:18] MED LIST changes: +AMIODARONE HCL200 M1 PO; +CEFD300 PO; +DONEPEZIL HCL5 M2 PO; +VIT1CAPS12; +Vitamin D2000 UNIT PO
[2020-02-06 15:12] LABS: BASOPHILS ABSOLUTE AUTO 0.01 K/mm3 (0.00-0.23); BASOPHILS PERCENT AUTO 0 % (0-2); EOSINOPHILS PERCENT AUTO 0 % (0-6); Hematocrit 44.4 % (33.0-51.0); Hemoglobin 14.9 g/dL (11.5-16.0); IMMATURE GRAN ABSOLUTE AUTO 0.05 K/mm3 (0.00-0.10); IMMATURE GRAN PERCENT AUTO 1 % (0-1); LYMPHOCYTES ABSOLUTE AUTO 1.04 K/mm3 (0.84-5.20); LYMPHOCYTES PERCENT AUTO 14 % (21-46); MONOCYTES ABSOLUTE AUTO 0.44 K/mm3 (0.16-1.47); MONOCYTES PERCENT AUTO 6 % (4-13); Mean Corpuscular HGB 30.2 pg (26.0-34.0); Mean Corpuscular HGB Conc 33.6 g/dL (31.5-36.5); Mean Corpuscular Volume 90 fL (80-100); Mean Platelet Volume 11.8 fL (9.1-12.4); NEUTROPHILS ABSOLUTE AUTO 5.77 K/mm3 (1.96-9.15); NEUTROPHILS PERCENT AUTO 79 % (41-73); Platelet Count 199 K/mm3 (150-400); RDW Coefficient Variation 12.4 % (11.7-14.2); Red Blood Cell Count 4.93 M/mm3 (3.80-5.20); White Blood Cell Count 7.31 K/mm3 (4.00-11.30)
[2020-02-06 15:32] LABS: Albumin/Globulin Ratio 0.7 (0.8-1.8); Bilirubin, Total 0.5 mg/dL (0.1-1.0); Bun/Creatinine Ratio 20.6 (12.0-20.0); Calcium, Blood 8.6 mg/dL (8.5-10.1); Creatinine, Blood 2.09 mg/dL (0.40-1.00); Globulin, Blood 4.2 g/dL (2.2-4.0); Potassium, Blood 4.4 mmol/L (3.5-5.5); Total Protein, Blood 7.2 g/dL (6.4-8.2)
[2020-02-06] MEDS ORDERED: ELIQUIS2.5 M1 PO (16:01)
[2020-02-06] MEDS ORDERED: CALCIUM PO (20:49)
[2020-02-06] MEDS ORDERED: SYNOVACIN500 MG PO (20:50)
[2020-02-06] MEDS ORDERED: VIT1CAPS12 (20:51)
[2020-02-07 06:10] LABS: Bun/Creatinine Ratio 26.6 (12.0-20.0); Calcium, Blood 7.9 mg/dL (8.5-10.1); Creatinine, Blood 1.54 mg/dL (0.40-1.00)
[2020-02-07 16:56] LABS: Source, Urine Catheter
[2020-02-07 17:00] LABS: Appearance, Urine Hazy (Clear); Bilirubin, Urine Neg (Neg); Blood, Urine 3+ (Neg); Color, Urine Yellow (P-Yellow); Glucose Qualitative, Urine Neg (Neg); Ketones, Urine 1+ (Neg); Leukocyte Esterase, Urine 1+ (Neg); Nitrite, Urine Neg (Neg); Protein, Urine 2+ (Neg); Specific Gravity, Urine 1.015 (1.003-1.022); Urobilinogen, Urine NORM (Normal)
[2020-02-07 17:09] LABS: White Blood Cells, Urine 25-50 /hpf (0-5); Yeast/Fungi Urine Few /hpf
[2020-02-07 17:10] LABS: Bacteria Mod /hpf; Squamous Epithelial Cells Rare /hpf (Few)
[2020-02-07 17:11] LABS: Renal Epithelial Few /hpf (0-Rare)
[2020-02-08 03:53] LABS: BASOPHILS ABSOLUTE AUTO 0.01 K/mm3 (0.00-0.23); BASOPHILS PERCENT AUTO 0 % (0-2); EOSINOPHILS PERCENT AUTO 0 % (0-6); Hematocrit 35.1 % (33.0-51.0); Hemoglobin 12.1 g/dL (11.5-16.0); IMMATURE GRAN ABSOLUTE AUTO 0.04 K/mm3 (0.00-0.10); IMMATURE GRAN PERCENT AUTO 1 % (0-1); LYMPHOCYTES ABSOLUTE AUTO 0.65 K/mm3 (0.84-5.20); LYMPHOCYTES PERCENT AUTO 17 % (21-46); MONOCYTES ABSOLUTE AUTO 0.33 K/mm3 (0.16-1.47); MONOCYTES PERCENT AUTO 8 % (4-13); Mean Corpuscular HGB 30.6 pg (26.0-34.0); Mean Corpuscular HGB Conc 34.5 g/dL (31.5-36.5); Mean Corpuscular Volume 89 fL (80-100); Mean Platelet Volume 11.7 fL (9.1-12.4); NEUTROPHILS ABSOLUTE AUTO 2.89 K/mm3 (1.96-9.15); NEUTROPHILS PERCENT AUTO 74 % (41-73); Platelet Count 147 K/mm3 (150-400); RDW Coefficient Variation 12.1 % (11.7-14.2); RDW Standard Deviation 39.8 fL (35.1-46.3); Red Blood Cell Count 3.95 M/mm3 (3.80-5.20); White Blood Cell Count 3.92 K/mm3 (4.00-11.30)
[2020-02-08 04:13] LABS: Bun/Creatinine Ratio 21.4 (12.0-20.0); Calcium, Blood 7.3 mg/dL (8.5-10.1); Creatinine, Blood 1.26 mg/dL (0.40-1.00); Potassium, Blood 3.7 mmol/L (3.5-5.5)
[2020-02-10 05:02] LABS: BASOPHILS ABSOLUTE AUTO 0.01 K/mm3 (0.00-0.23); BASOPHILS PERCENT AUTO 0 % (0-2); EOSINOPHILS PERCENT AUTO 0 % (0-6); Hematocrit 37.2 % (33.0-51.0); IMMATURE GRAN ABSOLUTE AUTO 0.09 K/mm3 (0.00-0.10); IMMATURE GRAN PERCENT AUTO 1 % (0-1); LYMPHOCYTES ABSOLUTE AUTO 0.45 K/mm3 (0.84-5.20); LYMPHOCYTES PERCENT AUTO 7 % (21-46); MONOCYTES ABSOLUTE AUTO 0.25 K/mm3 (0.16-1.47); MONOCYTES PERCENT AUTO 4 % (4-13); Mean Corpuscular HGB 30.7 pg (26.0-34.0); Mean Corpuscular HGB Conc 34.9 g/dL (31.5-36.5); Mean Corpuscular Volume 88 fL (80-100); Mean Platelet Volume 11.6 fL (9.1-12.4); NEUTROPHILS ABSOLUTE AUTO 5.67 K/mm3 (1.96-9.15); NEUTROPHILS PERCENT AUTO 88 % (41-73); Platelet Count 171 K/mm3 (150-400); RDW Coefficient Variation 12.2 % (11.7-14.2); RDW Standard Deviation 39.1 fL (35.1-46.3); Red Blood Cell Count 4.24 M/mm3 (3.80-5.20); White Blood Cell Count 6.47 K/mm3 (4.00-11.30)
[2020-02-10 05:22] LABS: Bun/Creatinine Ratio 19.4 (12.0-20.0); Creatinine, Blood 1.03 mg/dL (0.40-1.00); Potassium, Blood 3.9 mmol/L (3.5-5.5)
[2020-02-11 04:58] LABS: BASOPHILS ABSOLUTE AUTO 0.01 K/mm3 (0.00-0.23); BASOPHILS PERCENT AUTO 0 % (0-2); EOSINOPHILS PERCENT AUTO 0 % (0-6); Hemoglobin 12.6 g/dL (11.5-16.0); IMMATURE GRAN ABSOLUTE AUTO 0.07 K/mm3 (0.00-0.10); IMMATURE GRAN PERCENT AUTO 1 % (0-1); LYMPHOCYTES ABSOLUTE AUTO 0.44 K/mm3 (0.84-5.20); LYMPHOCYTES PERCENT AUTO 8 % (21-46); MONOCYTES ABSOLUTE AUTO 0.11 K/mm3 (0.16-1.47); MONOCYTES PERCENT AUTO 2 % (4-13); Mean Corpuscular HGB 30.1 pg (26.0-34.0); Mean Corpuscular HGB Conc 34.1 g/dL (31.5-36.5); Mean Corpuscular Volume 89 fL (80-100); Mean Platelet Volume 11.4 fL (9.1-12.4); NEUTROPHILS ABSOLUTE AUTO 4.84 K/mm3 (1.96-9.15); NEUTROPHILS PERCENT AUTO 89 % (41-73); Platelet Count 182 K/mm3 (150-400); RDW Coefficient Variation 12.5 % (11.7-14.2); RDW Standard Deviation 40.7 fL (35.1-46.3); Red Blood Cell Count 4.18 M/mm3 (3.80-5.20); White Blood Cell Count 5.47 K/mm3 (4.00-11.30)
[2020-02-11 05:18] LABS: Bun/Creatinine Ratio 19.5 (12.0-20.0); Calcium, Blood 8.1 mg/dL (8.5-10.1); Creatinine, Blood 1.18 mg/dL (0.40-1.00); Potassium, Blood 4.1 mmol/L (3.5-5.5)
[2020-02-12 04:28] LABS: BASOPHILS ABSOLUTE AUTO 0.01 K/mm3 (0.00-0.23); BASOPHILS PERCENT AUTO 0 % (0-2); EOSINOPHILS PERCENT AUTO 0 % (0-6); Hematocrit 36.9 % (33.0-51.0); Hemoglobin 12.6 g/dL (11.5-16.0); IMMATURE GRAN ABSOLUTE AUTO 0.15 K/mm3 (0.00-0.10); IMMATURE GRAN PERCENT AUTO 2 % (0-1); LYMPHOCYTES ABSOLUTE AUTO 1.09 K/mm3 (0.84-5.20); LYMPHOCYTES PERCENT AUTO 11 % (21-46); MONOCYTES ABSOLUTE AUTO 0.53 K/mm3 (0.16-1.47); MONOCYTES PERCENT AUTO 6 % (4-13); Mean Corpuscular HGB 29.6 pg (26.0-34.0); Mean Corpuscular HGB Conc 34.1 g/dL (31.5-36.5); Mean Corpuscular Volume 87 fL (80-100); Mean Platelet Volume 11.6 fL (9.1-12.4); NEUTROPHILS ABSOLUTE AUTO 7.74 K/mm3 (1.96-9.15); NEUTROPHILS PERCENT AUTO 81 % (41-73); Platelet Count 231 K/mm3 (150-400); RDW Coefficient Variation 12.3 % (11.7-14.2); RDW Standard Deviation 39.7 fL (35.1-46.3); Red Blood Cell Count 4.25 M/mm3 (3.80-5.20); White Blood Cell Count 9.52 K/mm3 (4.00-11.30)
[2020-02-12 04:47] LABS: Creatinine, Blood 1.25 mg/dL (0.40-1.00)
[2020-02-13 05:23] LABS: BASOPHILS ABSOLUTE AUTO 0.02 K/mm3 (0.00-0.23); BASOPHILS PERCENT AUTO 0 % (0-2); EOSINOPHILS PERCENT AUTO 0 % (0-6); Hematocrit 37.7 % (33.0-51.0); Hemoglobin 12.6 g/dL (11.5-16.0); IMMATURE GRAN ABSOLUTE AUTO 0.21 K/mm3 (0.00-0.10); IMMATURE GRAN PERCENT AUTO 2 % (0-1); LYMPHOCYTES ABSOLUTE AUTO 1.14 K/mm3 (0.84-5.20); LYMPHOCYTES PERCENT AUTO 9 % (21-46); MONOCYTES ABSOLUTE AUTO 0.74 K/mm3 (0.16-1.47); MONOCYTES PERCENT AUTO 6 % (4-13); Mean Corpuscular HGB 29.6 pg (26.0-34.0); Mean Corpuscular HGB Conc 33.4 g/dL (31.5-36.5); Mean Corpuscular Volume 89 fL (80-100); Mean Platelet Volume 11.4 fL (9.1-12.4); NEUTROPHILS ABSOLUTE AUTO 10.87 K/mm3 (1.96-9.15); NEUTROPHILS PERCENT AUTO 84 % (41-73); Platelet Count 273 K/mm3 (150-400); RDW Coefficient Variation 12.5 % (11.7-14.2); RDW Standard Deviation 40.2 fL (35.1-46.3); Red Blood Cell Count 4.26 M/mm3 (3.80-5.20); White Blood Cell Count 12.98 K/mm3 (4.00-11.30)
[2020-02-13 05:54] LABS: Albumin, Blood 2.2 g/dL (3.4-5.0); Albumin/Globulin Ratio 0.6 (0.8-1.8); Bilirubin, Total 0.6 mg/dL (0.1-1.0); C-REACTIVE PROTEIN, EXT RANGE 3.04 mg/dL (0.000-0.300); Calcium, Blood 8.2 mg/dL (8.5-10.1); Creatinine, Blood 1.4 mg/dL (0.40-1.00); Globulin, Blood 3.6 g/dL (2.2-4.0); Magnesium, Blood 2.3 mg/dL (1.6-2.4); Potassium, Blood 3.9 mmol/L (3.5-5.5); Total Protein, Blood 5.8 g/dL (6.4-8.2)
[2020-02-15 05:46] LABS: BASOPHILS ABSOLUTE AUTO 0.08 K/mm3 (0.00-0.23); BASOPHILS PERCENT AUTO 1 % (0-2); EOSINOPHILS ABSOLUTE AUTO 0.01 K/mm3 (0.00-0.68); EOSINOPHILS PERCENT AUTO 0 % (0-6); Hematocrit 39.2 % (33.0-51.0); Hemoglobin 13.1 g/dL (11.5-16.0); IMMATURE GRAN ABSOLUTE AUTO 0.56 K/mm3 (0.00-0.10); IMMATURE GRAN PERCENT AUTO 5 % (0-1); LYMPHOCYTES ABSOLUTE AUTO 1.29 K/mm3 (0.84-5.20); LYMPHOCYTES PERCENT AUTO 12 % (21-46); MONOCYTES ABSOLUTE AUTO 0.89 K/mm3 (0.16-1.47); MONOCYTES PERCENT AUTO 8 % (4-13); Mean Corpuscular HGB 29.6 pg (26.0-34.0); Mean Corpuscular HGB Conc 33.4 g/dL (31.5-36.5); Mean Corpuscular Volume 89 fL (80-100); Mean Platelet Volume 11.3 fL (9.1-12.4); NEUTROPHILS ABSOLUTE AUTO 8.36 K/mm3 (1.96-9.15); NEUTROPHILS PERCENT AUTO 75 % (41-73); Platelet Count 301 K/mm3 (150-400); RDW Coefficient Variation 12.4 % (11.7-14.2); RDW Standard Deviation 40.9 fL (35.1-46.3); Red Blood Cell Count 4.42 M/mm3 (3.80-5.20); White Blood Cell Count 11.19 K/mm3 (4.00-11.30)
[2020-02-15 06:09] LABS: Albumin, Blood 2.3 g/dL (3.4-5.0); Albumin/Globulin Ratio 0.6 (0.8-1.8); Bilirubin, Total 0.7 mg/dL (0.1-1.0); Bun/Creatinine Ratio 29.2 (12.0-20.0); C-REACTIVE PROTEIN, EXT RANGE 1.41 mg/dL (0.000-0.300); Calcium, Blood 7.9 mg/dL (8.5-10.1); Creatinine, Blood 1.37 mg/dL (0.40-1.00); Globulin, Blood 3.6 g/dL (2.2-4.0); Magnesium, Blood 2.3 mg/dL (1.6-2.4); Phosphorus, Blood 3.7 mg/dL (2.5-4.9); Potassium, Blood 4.1 mmol/L (3.5-5.5); Total Protein, Blood 5.9 g/dL (6.4-8.2)
[2020-02-15] MEDS ORDERED: ACET325 PO (11:24)
[2020-02-15] MEDS ORDERED: DEXA6 (11:26)
[2020-02-15] MEDS ORDERED: ZINC220 PO (11:26)
== END 2020-02-15 11:55 | disposition home health service (06) | DRG 308 ==
LOC: ER 14:18 → PCU 19:44 → ERHOLD 19:44 → PCU 20:30 → MEDS 02-08 20:35
PROVIDERS: Family Medicine; Hospitalist; Internal Medicine; Physician Assistant; ADMIT Internal Medicine
PROC: 3E0333Z Introduction of Anti-inflammatory into Peripheral Vein, Percutaneous Approach (ICD-10-PCS; principal; 2020-02-06)
PROC: XW033E5 Introduction of Remdesivir Anti-infective into Peripheral Vein, Percutaneous Approach, New Technology Group 5 (ICD-10-PCS; 2020-02-06)
DX: I48.0 Paroxysmal atrial fibrillation (principal); U07.1 COVID-19; J12.89 Other viral pneumonia; N17.9 Acute kidney failure, unspecified; I13.0 Hypertensive heart and chronic kidney disease with heart failure and stage 1 through stage 4 chronic kidney disease, or unspecified chronic kidney disease; N18.4 Chronic kidney disease, stage 4 (severe); J44.0 Chronic obstructive pulmonary disease with (acute) lower respiratory infection; N39.0 Urinary tract infection, site not specified; D61.818 Other pancytopenia; I50.9 Heart failure, unspecified; E66.9 Obesity, unspecified; E78.5 Hyperlipidemia, unspecified; E87.70 Fluid overload, unspecified; F03.90 Unspecified dementia, unspecified severity, without behavioral disturbance, psychotic disturbance, mood disturbance, and anxiety; G47.33 Obstructive sleep apnea (adult) (pediatric); Z85.038 Personal history of other malignant neoplasm of large intestine; Z85.51 Personal history of malignant neoplasm of bladder; Z87.891 Personal history of nicotine dependence; R62.7 Adult failure to thrive; Z93.3 Colostomy status; R09.02 Hypoxemia; Z95.0 Presence of cardiac pacemaker; Z79.01 Long term (current) use of anticoagulants; E87.6 Hypokalemia; L71.9 Rosacea, unspecified; B37.9 Candidiasis, unspecified; E86.0 Dehydration
CPT/HCPCS: 36415; 71045; 80048; 80053; 81001; 82728; 83605; 83615; 83735; 83880; 84100; 84443; 84484; 85025; 86140; 87077; 87086; 87106; 87186; 93005; 93010; 94660; 94761; 94762; 96361; 96374; 96376; 97110; 97110-CQ; 97162; 97165; 97530; 97530-CQ; 97535; 99285-25; A9270; A9270-GY; J2405; J3475; J7030; J7040; J7050; J7120

== ENCOUNTER 2020-02-27 15:26 | Emergency (ER) | payer MEDICARE, OTHER ==
[~2020-02-27] VITALS: Ht 167.6 cm; Wt 67.6 kg
[~2020-02-27 15:26] MED LIST changes: +ACET325 PO; +CALCIUM PO; +DEXA6; +ELIQUIS2.5 M1 PO; +SYNOVACIN500 MG PO; +ZINC220 PO
[2020-02-27 16:19] LABS: BASOPHILS ABSOLUTE AUTO 0.03 K/mm3 (0.00-0.23); BASOPHILS PERCENT AUTO 0 % (0-2); EOSINOPHILS ABSOLUTE AUTO 0.07 K/mm3 (0.00-0.68); EOSINOPHILS PERCENT AUTO 1 % (0-6); Hematocrit 41.6 % (33.0-51.0); Hemoglobin 13.7 g/dL (11.5-16.0); IMMATURE GRAN ABSOLUTE AUTO 0.06 K/mm3 (0.00-0.10); IMMATURE GRAN PERCENT AUTO 1 % (0-1); LYMPHOCYTES ABSOLUTE AUTO 2.11 K/mm3 (0.84-5.20); LYMPHOCYTES PERCENT AUTO 19 % (21-46); MONOCYTES ABSOLUTE AUTO 0.76 K/mm3 (0.16-1.47); MONOCYTES PERCENT AUTO 7 % (4-13); Mean Corpuscular HGB 30.2 pg (26.0-34.0); Mean Corpuscular HGB Conc 32.9 g/dL (31.5-36.5); Mean Corpuscular Volume 92 fL (80-100); Mean Platelet Volume 12.5 fL (9.1-12.4); NEUTROPHILS ABSOLUTE AUTO 8.22 K/mm3 (1.96-9.15); NEUTROPHILS PERCENT AUTO 73 % (41-73); Platelet Count 163 K/mm3 (150-400); RDW Coefficient Variation 13.7 % (11.7-14.2); Red Blood Cell Count 4.53 M/mm3 (3.80-5.20); White Blood Cell Count 11.25 K/mm3 (4.00-11.30)
[2020-02-27 16:44] LABS: Albumin, Blood 2.8 g/dL (3.4-5.0); Albumin/Globulin Ratio 0.7 (0.8-1.8); Bilirubin, Total 0.8 mg/dL (0.1-1.0); Bun/Creatinine Ratio 17.1 (12.0-20.0); Calcium, Blood 8.7 mg/dL (8.5-10.1); Creatinine, Blood 1.75 mg/dL (0.40-1.00); Globulin, Blood 3.8 g/dL (2.2-4.0); Potassium, Blood 3.9 mmol/L (3.5-5.5); Total Protein, Blood 6.6 g/dL (6.4-8.2)
[2020-02-27 17:21] LABS: Source, Urine Catheter
[2020-02-27 17:31] LABS: Appearance, Urine Hazy (Clear); Bilirubin, Urine Neg (Neg); Blood, Urine 3+ (Neg); Color, Urine Yellow (P-Yellow); Glucose Qualitative, Urine Neg (Neg); Ketones, Urine Neg (Neg); Leukocyte Esterase, Urine 3+ (Neg); Nitrite, Urine Pos (Neg); Protein, Urine 1+ (Neg); Specific Gravity, Urine 1.015 (1.003-1.022); Urobilinogen, Urine NORM (Normal)
[2020-02-27 17:38] LABS: Bacteria Many /hpf; Squamous Epithelial Cells Not Seen /hpf (Few)
[2020-02-27 17:39] LABS: Hyaline Casts 0-2 /lpf (0-2)
[2020-02-27] MEDS ORDERED: CEFP200 PO (18:29)
== END 2020-02-27 20:16 | disposition home or self-care (01) ==
LOC: ER 15:26
PROVIDERS: Physician Assistant
DX: I48.91 Unspecified atrial fibrillation (principal); N39.0 Urinary tract infection, site not specified; Z79.01 Long term (current) use of anticoagulants; Z79.899 Other long term (current) drug therapy; Z79.52 Long term (current) use of systemic steroids; Z88.2 Allergy status to sulfonamides; Z88.8 Allergy status to other drugs, medicaments and biological substances; Z87.891 Personal history of nicotine dependence
CPT/HCPCS: 36415; 71046; 80053; 81001; 85025; 87086; 92960; 93005; 93010; 96361-59; 96365-59; 99285-25; J0696; J7030

== ENCOUNTER → 2020-04-04 | Outpatient (CLI) | payer MEDICARE, OTHER ==
[~2020-04-04] MED LIST changes: +CEFP200 PO
== END ==
LOC: LAB SHORT 11:41 → LAB 11:41
DX: N39.0 Urinary tract infection, site not specified (principal)
CPT/HCPCS: 87086

== ENCOUNTER 2021-04-04 11:21 | Emergency (ER) | payer MEDICARE, OTHER ==
[~2021-04-04] VITALS: Ht 170.2 cm; Wt 63.5 kg
[2021-04-04 11:42] LABS: BASOPHILS ABSOLUTE AUTO 0.04 K/mm3 (0.00-0.23); BASOPHILS PERCENT AUTO 1 % (0-2); EOSINOPHILS ABSOLUTE AUTO 0.06 K/mm3 (0.00-0.68); EOSINOPHILS PERCENT AUTO 1 % (0-6); Hematocrit 40.2 % (33.0-51.0); Hemoglobin 13.3 g/dL (11.5-16.0); IMMATURE GRAN ABSOLUTE AUTO 0.03 K/mm3 (0.00-0.10); IMMATURE GRAN PERCENT AUTO 0 % (0-1); LYMPHOCYTES ABSOLUTE AUTO 1.73 K/mm3 (0.84-5.20); LYMPHOCYTES PERCENT AUTO 21 % (21-46); MONOCYTES ABSOLUTE AUTO 0.71 K/mm3 (0.16-1.47); MONOCYTES PERCENT AUTO 9 % (4-13); Mean Corpuscular HGB 31.2 pg (26.0-34.0); Mean Corpuscular HGB Conc 33.1 g/dL (31.5-36.5); Mean Corpuscular Volume 94 fL (80-100); Mean Platelet Volume 11.2 fL (9.1-12.4); NEUTROPHILS ABSOLUTE AUTO 5.77 K/mm3 (1.96-9.15); NEUTROPHILS PERCENT AUTO 69 % (41-73); Platelet Count 193 K/mm3 (150-400); RDW Coefficient Variation 12.9 % (11.7-14.2); RDW Standard Deviation 44.7 fL (35.1-46.3); Red Blood Cell Count 4.26 M/mm3 (3.80-5.20); White Blood Cell Count 8.34 K/mm3 (4.00-11.30)
[2021-04-04 12:02] LABS: Albumin, Blood 3.5 g/dL (3.4-5.0); Bilirubin, Total 0.7 mg/dL (0.1-1.0); Bun/Creatinine Ratio 13.4 (12.0-20.0); Calcium, Blood 8.6 mg/dL (8.5-10.1); Creatinine, Blood 1.72 mg/dL (0.40-1.00); Globulin, Blood 3.4 g/dL (2.2-4.0); Potassium, Blood 4.6 mmol/L (3.5-5.5); Total Protein, Blood 6.9 g/dL (6.4-8.2)
== END 2021-04-04 14:55 | disposition home or self-care (01) ==
LOC: ER 11:21
PROVIDERS: Physician Assistant
DX: I48.91 Unspecified atrial fibrillation (principal); Z88.2 Allergy status to sulfonamides; Z88.8 Allergy status to other drugs, medicaments and biological substances; Z79.899 Other long term (current) drug therapy; I48.20 Chronic atrial fibrillation, unspecified; I10 Essential (primary) hypertension; E78.5 Hyperlipidemia, unspecified; G47.33 Obstructive sleep apnea (adult) (pediatric); Z87.891 Personal history of nicotine dependence
CPT/HCPCS: 36415; 71046; 80053; 84484; 85025; 93005; 93010; 96365; 96375; 99285-25; J0610; J7030

== ENCOUNTER 2021-06-26 14:35 | Emergency (ER) | payer MEDICARE, OTHER ==
[~2021-06-26] VITALS: Ht 165.1 cm; Wt 68.0 kg
[~2021-06-26 14:35] MED LIST changes: +ARTIFICIAL TEAR15 M2 BOTHEYES; +CALCIUM CARBON500 M1 PO; +CENTRUM SILVER1 EAC2 PO; +VITAMIN D325 MC3 PO
== END 2021-06-26 15:00 | disposition home or self-care (01) ==
LOC: ER 14:35
DX: F03.90 Unspecified dementia, unspecified severity, without behavioral disturbance, psychotic disturbance, mood disturbance, and anxiety (principal); R53.1 Weakness; I10 Essential (primary) hypertension; I48.20 Chronic atrial fibrillation, unspecified; G47.33 Obstructive sleep apnea (adult) (pediatric); Z88.2 Allergy status to sulfonamides; Z88.8 Allergy status to other drugs, medicaments and biological substances; Z79.899 Other long term (current) drug therapy; Z79.01 Long term (current) use of anticoagulants
CPT/HCPCS: 99284

== ENCOUNTER 2021-12-21 15:05 | Inpatient (IN) | payer MEDICARE, OTHER ==
[~2021-12-21] VITALS: Ht 167.6 cm; Wt 68.2 kg
[2021-12-21 15:46] LABS: BASOPHILS ABSOLUTE AUTO 0.04 K/mm3 (0.00-0.23); BASOPHILS PERCENT AUTO 0 % (0-2); EOSINOPHILS ABSOLUTE AUTO 0.03 K/mm3 (0.00-0.68); EOSINOPHILS PERCENT AUTO 0 % (0-6); Hematocrit 34.9 % (33.0-51.0); Hemoglobin 11.4 g/dL (11.5-16.0); IMMATURE GRAN ABSOLUTE AUTO 0.04 K/mm3 (0.00-0.10); IMMATURE GRAN PERCENT AUTO 0 % (0-1); LYMPHOCYTES ABSOLUTE AUTO 1.69 K/mm3 (0.84-5.20); LYMPHOCYTES PERCENT AUTO 17 % (21-46); MONOCYTES ABSOLUTE AUTO 0.89 K/mm3 (0.16-1.47); MONOCYTES PERCENT AUTO 9 % (4-13); Mean Corpuscular HGB 31.1 pg (26.0-34.0); Mean Corpuscular HGB Conc 32.7 g/dL (31.5-36.5); Mean Corpuscular Volume 95 fL (80-100); Mean Platelet Volume 12.1 fL (9.1-12.4); NEUTROPHILS ABSOLUTE AUTO 7.36 K/mm3 (1.96-9.15); NEUTROPHILS PERCENT AUTO 73 % (41-73); Platelet Count 172 K/mm3 (150-400); RDW Coefficient Variation 13.5 % (11.7-14.2); RDW Standard Deviation 47.5 fL (35.1-46.3); Red Blood Cell Count 3.66 M/mm3 (3.80-5.20); White Blood Cell Count 10.05 K/mm3 (4.00-11.30)
[2021-12-21 16:07] LABS: Albumin, Blood 2.7 g/dL (3.4-5.0); Albumin/Globulin Ratio 1.1 (0.8-1.8); Bilirubin, Total 0.3 mg/dL (0.1-1.0); Bun/Creatinine Ratio 13.8 (12.0-20.0); Creatinine, Blood 2.03 mg/dL (0.40-1.00); Globulin, Blood 2.4 g/dL (2.2-4.0); Potassium, Blood 4.5 mmol/L (3.5-5.5); Total Protein, Blood 5.1 g/dL (6.4-8.2)
[2021-12-21 16:24] LABS: Magnesium, Blood 1.7 mg/dL (1.6-2.4)
[2021-12-21 16:26] LABS: Thyroid Stimulating Hormone 3.24 uIU/mL (0.360-4.800)
[2021-12-21 18:48] LABS: Influenza A, PCR NEGATIVE (NEGATIVE); Influenza B, PCR NEGATIVE (NEGATIVE); Resp Syncytial Virus, PCR NEGATIVE (NEGATIVE); SARS-Cov-2 (COVID-19) PCR, MMC NEGATIVE (NEGATIVE)
[2021-12-21] MEDS ORDERED: C COMPLEX1000 M1 PO (21:20)
--- NOTE | 2021-12-21 22:10 | NUR ---
ASSUMED CARE OF PT. DR. WYNN HERE IN THE ROOM. PT DENIES ANY CHEST PAIN. PT'S SKIN TONE IS PALE IN COLOR. PT ASKING FOR SOMETHING TO DRINK - WILL AWAIT DIET ORDERS. CALL LIGHT WITHIN REACH. BED IN LOW POSITION. BED ALARM OF FOR PT SAFETY.
[2021-12-22 00:15] LABS: Source, Urine Urostomy Bag
[2021-12-22 00:20] LABS: Appearance, Urine Hazy (Clear); Bilirubin, Urine Neg (Neg); Blood, Urine 2+ (Neg); Color, Urine Yellow (P-Yellow); Glucose Qualitative, Urine Neg (Neg); Ketones, Urine Neg (Neg); Leukocyte Esterase, Urine Neg (Neg); Nitrite, Urine Neg (Neg); Protein, Urine 1+ (Neg); Urobilinogen, Urine NORM (Normal)
[2021-12-22 00:22] LABS: Bun/Creatinine Ratio 15.3 (12.0-20.0); Calcium, Blood 7.9 mg/dL (8.5-10.1); Creatinine, Blood 1.89 mg/dL (0.40-1.00); Potassium, Blood 4.3 mmol/L (3.5-5.5)
[2021-12-22 01:11] LABS: Bacteria Few /hpf; Hyaline Casts 0-2 /lpf (0-2); Squamous Epithelial Cells Not Seen /hpf (Few)
--- NOTE | 2021-12-22 04:58 | NUR ---
CALL PLACED TO DR. WYNN - AWAITING RETURN CALL.
--- NOTE | 2021-12-22 05:00 | NUR ---
UPDATED DR. WYNN ON RHYTHM CHANGE TO AFIB, HR 150'S. REVIEWED VS - SEE VS. PT DENIES CHEST PAIN. ORDER OBTAINED FOR NORMAL SALINE BOLUS IV - SEE EMAR.
--- NOTE | 2021-12-22 05:23 | NUR ---
INFUSING NORMAL SALINE 500 CC BOLUS AT 999, WITH IV BAG OF NORMAL SALINE CURRENTLY HANGING (WHICH WAS INFUSING AT 75 CC HOUR.) PT IS ALERT, CONTINUES CONFUSED. PT DENIES CHEST PAIN.
--- NOTE | 2021-12-22 05:31 | NUR ---
SPOKE TO DR. WYNN - UPDATED ON EKG RHYTHM DONE, AND CURRENT HEART RATE 120-150'S. ORDER RECEIVED FOR METOPROLOL - SEE ORDER.
--- NOTE | 2021-12-22 05:55 | NUR ---
0500 - PT BECOMING AGITATED. NOT COMPLIANT WITH ATTEMPTING EKG. REQUIRED EFFORT FROM MULTIPLE STAFF, AND PLACED RESTRAINTS ON TO BILATERAL WRISTS FOR EKG.
--- NOTE | 2021-12-22 05:58 | NUR ---
WRIST RESTRAINTS ON FOR 5 MINUTES DURING EKG. WRIST RESTRAINTS REMOVED AFTER EKG DONE. PT IRRITABLE AGAIN, STATING THERE IS NOTHING WRONG WITH HER HEART. 3 STAFF MEMBERS IN ROOM, ASSISTING WITH CALMING PT. PT DID CALM DOWN AFTER A FEW MINUTES, PT FOCUSED ON A STAFF MEMBERS TATTOO. CONTINUING TO MONITOR. IV METOPROLOL X1 IV PUSH, WILL ADMINISTER AGAIN IN 30 MINUTES IF HR OVER 100 - SEE EMAR.
--- NOTE | 2021-12-22 06:35 | NUR ---
L AC IV SITE INFILTRATED. ATTEMPTING ANOTHER IV.
--- NOTE | 2021-12-22 06:42 | NUR ---
HEAR RATE VARIES FROM 120-150'S, VS 90/73, MAP 81. 1ST IV ATTEMPT NOT SUCCESSFUL.
--- NOTE | 2021-12-22 07:28 | NUR ---
SHIFT SUMMARY - PT HAD AN UNEVENTFUL NIGHT, UP UNTIL APPX 0455 LAST NOC, WHEN HER HEART RATE SUSTAINED IN THE 150'S. CALL PLACED TO DR. WYNN WITH ORDER RECEIVED FOR 500 CC FLUID BOLUS. CALL PLACED AGAIN TO DR. WYNN, HER HEART RATE WAS SUSTAINING 130-150'S - ORDER RECEIVED FOR METOPROLOL 5MG IV PUSH, WITH REPEAT SAME PUSH IN 1 HOUR IF HR OVER 110. SEE EMAR AND VS FOR FOLLOW UP, 2ND DOSE OF METOPROLOL GIVEN. PT WAS PLEASANT LAST NOC, UNTIL THIS EVENT OCCURRED AT 0455, THEN PT BECAME IRRITABLE - SEE PREVIOUS NOTE ON THIS. PT IS CURRENTLY SLEEPING, AND HEART RATE IN 60'S, CONTINUES IN AFIB. CALL LIGHT WITHIN REACH. BED IN LOW POSITION. FLUIDS AT BEDSIDE.
[2021-12-22 08:19] LABS: BASOPHILS ABSOLUTE AUTO 0.02 K/mm3 (0.00-0.23); BASOPHILS PERCENT AUTO 0 % (0-2); EOSINOPHILS ABSOLUTE AUTO 0.08 K/mm3 (0.00-0.68); EOSINOPHILS PERCENT AUTO 1 % (0-6); Hematocrit 32.7 % (33.0-51.0); Hemoglobin 10.7 g/dL (11.5-16.0); IMMATURE GRAN ABSOLUTE AUTO 0.05 K/mm3 (0.00-0.10); IMMATURE GRAN PERCENT AUTO 0 % (0-1); LYMPHOCYTES ABSOLUTE AUTO 1.45 K/mm3 (0.84-5.20); LYMPHOCYTES PERCENT AUTO 13 % (21-46); MONOCYTES ABSOLUTE AUTO 0.99 K/mm3 (0.16-1.47); MONOCYTES PERCENT AUTO 9 % (4-13); Mean Corpuscular HGB 31.3 pg (26.0-34.0); Mean Corpuscular HGB Conc 32.7 g/dL (31.5-36.5); Mean Corpuscular Volume 96 fL (80-100); Mean Platelet Volume 11.8 fL (9.1-12.4); NEUTROPHILS ABSOLUTE AUTO 8.67 K/mm3 (1.96-9.15); NEUTROPHILS PERCENT AUTO 77 % (41-73); Platelet Count 144 K/mm3 (150-400); RDW Coefficient Variation 13.6 % (11.7-14.2); RDW Standard Deviation 47.7 fL (35.1-46.3); Red Blood Cell Count 3.42 M/mm3 (3.80-5.20); White Blood Cell Count 11.26 K/mm3 (4.00-11.30)
[2021-12-22 08:41] LABS: Albumin, Blood 2.8 g/dL (3.4-5.0); Albumin/Globulin Ratio 1.2 (0.8-1.8); Bilirubin, Total 0.4 mg/dL (0.1-1.0); Bun/Creatinine Ratio 14.2 (12.0-20.0); Calcium, Blood 7.7 mg/dL (8.5-10.1); Creatinine, Blood 1.69 mg/dL (0.40-1.00); Globulin, Blood 2.4 g/dL (2.2-4.0); Total Protein, Blood 5.2 g/dL (6.4-8.2)
--- NOTE | 2021-12-22 18:53 | NUR ---
PT ORIENTED X2, CONFUSED WITH HX OF DEMENTIA. SR AT START OF SHIFT W/PACS. PT WANDERING IN ROOM, CONSTANTLY SETTING OFF BED ALARM. DR. GUAJARDO NOTIFIED AND ONE TIME DOSE OF PO ZYPREXA RECEIVED. PT SLEPT BRIEFLY IN THE AFTERNOON BUT AGAIN BECAME NON-REDIRECTABLE AND PULLING OFF TELEMETRY. NOTIFIED AND ORDER FOR PO SEROQUEL RECEIVED. PT HAD LITTLE TO NO RESPONSE APPROXIMATELY 2 HOURS AFTER AND CONTINUED TO BE AGITATED AND SETTING OFF BED ALARM. ON-CALL RESIDENT DR. SRIVASTAVA NOTIFIED AND ADDITIONAL DOSE OF SEROQUEL ORDERED WELL MOLLY VEST. 1845 - PT FLIPPED INTO AFIB RVR WITH RATES IN 180S. DR. SRIVASTAVA TO BEDSIDE AND IV METOPROLOL ORDERED X1. GIVEN AND PT CONVERTED TO SR APPROXIMATELY 2 MINUTES LATER. OTHER VSS WILL PASS ON TO DAY RN
[2021-12-22 22:10] LABS: Albumin, Blood 2.7 g/dL (3.4-5.0); Bilirubin, Total 0.2 mg/dL (0.1-1.0); Bun/Creatinine Ratio 18.3 (12.0-20.0); Calcium, Blood 7.4 mg/dL (8.5-10.1); Creatinine, Blood 1.69 mg/dL (0.40-1.00); Globulin, Blood 2.6 g/dL (2.2-4.0); Potassium, Blood 3.7 mmol/L (3.5-5.5); Total Protein, Blood 5.3 g/dL (6.4-8.2)
--- NOTE | 2021-12-23 03:29 | NUR ---
TEMP 98.1 F RR 20
--- NOTE | 2021-12-23 06:20 | NUR ---
SHORTLY AFTER SHIFT CHANGE AROUND 1930 PT HR UP TO 180'S AFIB RVR, ORDER OBTAINED FOR 5 MG METOPROLOL IV PUSH, SUBSEQUENT CARDIZEM PUSH AND GTT STARTED AT 15 MG/HR, TITRATED DOWN FOLLOWING HYPOTENSION DURING INFUSION. PT HR REMAINED IN 140'S-160'S AFIB RVR. OCCASIONAL EPISODES OF HYPOTENSION SOME IMPROVEMENT WITH [place] POSITIONING. PT CONFUSED, ORIENTED TO SELF AT TIMES THROUGHOUT NIGHT, ORIENTATION APPEARED WORSE FOLLOWING MEDS TO ATTEMPT TO CALM PT TO PREVENT FURTHER TACHYCARDIA AND TO KEEP PT FROM ATTEMPTING TO CRAWL OUT OF BED. MOLLY ON FOR MOST OF SHIFT AND BILATERAL SOFT WRIST RESTRAINTS ADDED PER ORDERS. PT AGITATED IN RESTRAINTS AND YELLS OUT, ATTEMPTING TO GET OUT OF BED, ABLE TO DISLODGE HERSELF FROM WRIST RESTRAINTS ON TWO SEPARATE OCCASIONS. THIS RN SAT 1:1 WITH PT TO ATTEMPT TO KEEP HER CALM AND IN BED AFTER JESSICA STARR LEAVES BEDSIDE TO RETURN TO FLOOR. PT ATTENOTED TO GET OUT OF BED EVEN WITH THIS RN AT BEDSIDE AND RESTRAINTS AND VEST WERE REINITIATED. HR MAINTAINED LOW 60'S-80'S SR-BBB ATRIAL PACED THIS AM FOLLOWING CONVERSION FROM AFIB FOLLOWING AMIO BOLUS. SBP IMPROVED TO 120'S. PT REMAINS IN RESTRAINTS FOLLOWING SHIFT CHANGE, THIS RN ATTEMPTED TO CALL AND SHYLA SISTER IN LAW OF PT WAS LEFT MESSAGE TO PLEASE CONTACT THE UNIT.
[2021-12-23 06:29] LABS: BASOPHILS ABSOLUTE AUTO 0.03 K/mm3 (0.00-0.23); BASOPHILS PERCENT AUTO 0 % (0-2); EOSINOPHILS ABSOLUTE AUTO 0.09 K/mm3 (0.00-0.68); EOSINOPHILS PERCENT AUTO 1 % (0-6); Hematocrit 30.6 % (33.0-51.0); Hemoglobin 10.5 g/dL (11.5-16.0); IMMATURE GRAN ABSOLUTE AUTO 0.07 K/mm3 (0.00-0.10); IMMATURE GRAN PERCENT AUTO 1 % (0-1); LYMPHOCYTES PERCENT AUTO 16 % (21-46); MONOCYTES PERCENT AUTO 10 % (4-13); Mean Corpuscular HGB 31.5 pg (26.0-34.0); Mean Corpuscular HGB Conc 34.3 g/dL (31.5-36.5); Mean Corpuscular Volume 92 fL (80-100); Mean Platelet Volume 12.2 fL (9.1-12.4); NEUTROPHILS ABSOLUTE AUTO 6.28 K/mm3 (1.96-9.15); NEUTROPHILS PERCENT AUTO 72 % (41-73); Platelet Count 120 K/mm3 (150-400); RDW Coefficient Variation 13.8 % (11.7-14.2); Red Blood Cell Count 3.33 M/mm3 (3.80-5.20); White Blood Cell Count 8.77 K/mm3 (4.00-11.30)
[2021-12-23 06:48] LABS: Bun/Creatinine Ratio 16.7 (12.0-20.0); Calcium, Blood 7.6 mg/dL (8.5-10.1); Creatinine, Blood 1.5 mg/dL (0.40-1.00); Potassium, Blood 3.8 mmol/L (3.5-5.5)
--- NOTE | 2021-12-23 17:07 | NUR ---
END OF SHIFT NOTE UPON CARE ASSUMPTION THIS AM, PT UNABLE TO ANSWER Qs APPROPRIATELY. PT CONVERSING W/ "NE" IN RM BUT NO ONE IN RM W/ PT. PT IN BILAT SWR & MOLLY VEST. PT MENTATION EVENTUALLY SOMEWHAT IMPROVING W/ PT ABLE TO STATE NAME & APPROPRIATELY, BUT NOT ANSWERING OTHER Qs APPROPRIATELY. PT S/O NE TO PT RM, ASSISTING W/ PT CARE. PT S/O STATING "I'VE BEEN MANAGING HER OSTOMY FOR THE LAST 10 YRS NOW. PT UROSTOMY BRIGHT RED, W/ SURROUNDING SKIN W/ MINIMAL REDNESS. SITE CLEANSED & NEW UROSTOMY APPLIANCE APPLIED. PT UP FOR WALK IN HALLWAY W/ THIS RN & PT S/O THIS AFTERNOON, PT TOLERATING WELL. PT VSS. SPO2 > 92% ON RA. MONITOR SHOWING SR, HR 60s. UROSTOMY W/ CLEAR YELLOW URINE OUTPUT. PT IN BED W/ BED ALARM ON, PT S/O NOW OUT OF RM & PT BECOMING MORE CONFUSED AGAIN, STATING THINGS SUCH "CAN YOU LOOK TO SEE IF THE UPGRADE FOR THIS (TISSUE BOX) HAS BEEN MADE?" PT STATING THINGS THAT DON'T MAKE SENSE & ANSWERING Q's UNSENSICALLY.
[2021-12-24 06:19] LABS: BASOPHILS ABSOLUTE AUTO 0.02 K/mm3 (0.00-0.23); BASOPHILS PERCENT AUTO 0 % (0-2); EOSINOPHILS ABSOLUTE AUTO 0.16 K/mm3 (0.00-0.68); EOSINOPHILS PERCENT AUTO 2 % (0-6); Hematocrit 32.3 % (33.0-51.0); Hemoglobin 10.6 g/dL (11.5-16.0); IMMATURE GRAN ABSOLUTE AUTO 0.02 K/mm3 (0.00-0.10); IMMATURE GRAN PERCENT AUTO 0 % (0-1); LYMPHOCYTES PERCENT AUTO 20 % (21-46); MONOCYTES ABSOLUTE AUTO 0.59 K/mm3 (0.16-1.47); MONOCYTES PERCENT AUTO 9 % (4-13); Mean Corpuscular HGB 30.5 pg (26.0-34.0); Mean Corpuscular HGB Conc 32.8 g/dL (31.5-36.5); Mean Corpuscular Volume 93 fL (80-100); Mean Platelet Volume 11.8 fL (9.1-12.4); NEUTROPHILS ABSOLUTE AUTO 4.58 K/mm3 (1.96-9.15); NEUTROPHILS PERCENT AUTO 69 % (41-73); Platelet Count 140 K/mm3 (150-400); RDW Coefficient Variation 13.7 % (11.7-14.2); RDW Standard Deviation 46.4 fL (35.1-46.3); Red Blood Cell Count 3.47 M/mm3 (3.80-5.20); White Blood Cell Count 6.67 K/mm3 (4.00-11.30)
[2021-12-24 06:42] LABS: Albumin, Blood 2.8 g/dL (3.4-5.0); Bilirubin, Total 0.6 mg/dL (0.1-1.0); Bun/Creatinine Ratio 14.1 (12.0-20.0); Calcium, Blood 7.4 mg/dL (8.5-10.1); Creatinine, Blood 1.35 mg/dL (0.40-1.00); Globulin, Blood 2.8 g/dL (2.2-4.0); Potassium, Blood 3.9 mmol/L (3.5-5.5); Total Protein, Blood 5.6 g/dL (6.4-8.2)
--- NOTE | 2021-12-24 15:31 | NUR ---
END OF SHIFT NOTE PT MEDICAL W/ TELE STATUS. A&O TO SELF & FAMILY. MOLLY VEST & BILAT SWR DC'd THIS SHIFT. PT VSS. SPO2 > 92% ON RA. MONITOR SHOWING PACED RHYTHM, HR 60s. UROSTOMY W/ CLEAR YELLOW URINE OUTPUT. PT S/O AT BEDSIDE MUCH OF THE DAY. REPORT GIVEN TO DAY SHIFT RN ASSUMING CARE OF PT UNTIL END OF SHIFT. CALL LIGHT IN REACH. BED ALARM ON.
--- NOTE | 2021-12-25 00:16 | NUR ---
TRANSFER NOTE PT PIVOTED OVER FROM PCU BED AND TRANSFERRED TO MED ROOM 351. SYSTOLIC BP UNDER 100, EVENING METOPROLOL HELD. AFEBRILE. HR SR 60'S. ON RA SATS OVER 96%. UROSTOMY IN PLACE DRAINING YELLOW URINE TO GRAVITY. EVENING MED PASS GIVEN. PT ALERT AND ORIENTED X2. HX OF DEMENTIA, EXTREMELY FORGETFUL. WAS NOT AWARE WAS IN ROOM JUST 30 MINUTE PRIOR. NO C/O PAIN OR DISCOMFORT. BED ALARM ON AND CALL ALARM AT SIDE
--- NOTE | 2021-12-25 03:42 | NUR ---
SHIFT SUMMARY PT ARRIVED TO FLOOR FROM PCU AROUND 2129. SITUATED IN BED, ASSESSMENT COMPLETE, EDUCATED MANAGER ELIGIBILITY LIGHT AND PLAN OF CARE. PT AMBULATED TO BATHROOM WITH X1 STAFF ASSIST AND FWW. PT A/OX2, MORE FORGETFUL AND IMPULSIVE NIGHT WENT ON. ADMINISTERED PRN SEROQUEL FOR IMPULSIVNESS. PT VERY FIGETDY AND BECOMING AGITATED WHEN EXPLAINED SHE IS IN THE HOSPTAL AND IS AT HOME. ABLE TO REDIRECT. UROSTOMY INTACT, BM IN TOLIET. DENIES ANY PAIN/SOB. PACED/NSR ON TELE, HR CONTROLLED. BED ALARM ON. WILL CONTINUE TO MONITOR.
[2021-12-25 05:52] LABS: BASOPHILS ABSOLUTE AUTO 0.03 K/mm3 (0.00-0.23); BASOPHILS PERCENT AUTO 0 % (0-2); EOSINOPHILS ABSOLUTE AUTO 0.13 K/mm3 (0.00-0.68); EOSINOPHILS PERCENT AUTO 2 % (0-6); Hematocrit 32.6 % (33.0-51.0); Hemoglobin 10.8 g/dL (11.5-16.0); IMMATURE GRAN ABSOLUTE AUTO 0.02 K/mm3 (0.00-0.10); IMMATURE GRAN PERCENT AUTO 0 % (0-1); LYMPHOCYTES ABSOLUTE AUTO 1.39 K/mm3 (0.84-5.20); LYMPHOCYTES PERCENT AUTO 20 % (21-46); MONOCYTES ABSOLUTE AUTO 0.59 K/mm3 (0.16-1.47); MONOCYTES PERCENT AUTO 9 % (4-13); Mean Corpuscular HGB 31.1 pg (26.0-34.0); Mean Corpuscular HGB Conc 33.1 g/dL (31.5-36.5); Mean Corpuscular Volume 94 fL (80-100); Mean Platelet Volume 11.5 fL (9.1-12.4); NEUTROPHILS PERCENT AUTO 69 % (41-73); Platelet Count 150 K/mm3 (150-400); RDW Coefficient Variation 13.9 % (11.7-14.2); RDW Standard Deviation 47.5 fL (35.1-46.3); Red Blood Cell Count 3.47 M/mm3 (3.80-5.20); White Blood Cell Count 6.86 K/mm3 (4.00-11.30)
[2021-12-25 06:17] LABS: Albumin, Blood 2.6 g/dL (3.4-5.0); Bilirubin, Total 0.5 mg/dL (0.1-1.0); Bun/Creatinine Ratio 12.4 (12.0-20.0); Calcium, Blood 8.1 mg/dL (8.5-10.1); Creatinine, Blood 1.53 mg/dL (0.40-1.00); Globulin, Blood 2.7 g/dL (2.2-4.0); Potassium, Blood 3.9 mmol/L (3.5-5.5); Total Protein, Blood 5.3 g/dL (6.4-8.2)
[2021-12-25] MEDS ORDERED: PACERONE100 M1 PO (12:36)
--- NOTE | 2021-12-25 13:10 | NUR ---
SHIF/DISCHARGE SUMMARY: PATIENT ALERT AND ORIENTED TO SELF AND PERSON (SPOUSE AT BEDSIDE). PATIENT NOT ABLE TO RECALL THE DAY, DATE AND YEAR. PATIENT PLEASANT, CALM AND COOPERATIVE WITH CARE. PATIENT ON TELE, PACED IN 60'S BPM PER PRINCIPAL CYBER ENGINEER LAURA GUZMAN. PATIENT DENIED CP/CHEST DISCOMFORT. PATIENT ON RA WITH SPO2 OF 98%. LUNGS CLEAR T/O TO AUSCULTATION. DENIED SOB. DENIED N/V. ATE 100% FOR BREAKFAST AND LUNCH. PATIENT AMBULATES TO BATHROOM WITH 1 ASSIST, FWW AND GAITBELT. VITAL SIGNS REVEIWED. IV DC'D. PATIENT DISCHARGE HOME. DISCHARGE INSTRUCTIONS PACKET GIVE TO SPOUSE LAURA. EDUCATE PATIENT AND LAURA REGARDING PATIENT ADMITTING DIAGNOSIS, SIGNS AND SYMPTOMS, TREATMENT, AND NEW PRESCRIBED MEDICATIONS. PATIENT AND LAURA STATED UNDERSTANDING AND NO FURTHER QUESTIONS. RX WAS FAXED TO PATIENT AND SPOUSE PREFERRED PHARMACY ([facility]). ALL PATIENT PERSONAL BELONGINGS WERE SENT HOME WITH THE SPOUSE LAURA. PATIENT TRANSPORTED VIA WHEELCHAIR BY FUNDING SPECIALIST STAFF RAQUEL TO PATIENT'S SPOUSE PRIVATE VEHICLE.
== END 2021-12-25 13:10 | disposition home or self-care (01) | DRG 280 ==
LOC: ER 15:05 → PCU 15:06 → MEDS 12-24 21:13
PROVIDERS: Internal Medicine; Student in an Organized Health Care Education/Training Program; ADMIT Internal Medicine
PROC: 5A2204Z Restoration of Cardiac Rhythm, Single (ICD-10-PCS; principal; 2021-12-21)
DX: I48.0 Paroxysmal atrial fibrillation (principal); I21.A1 Myocardial infarction type 2; G92.8 Other toxic encephalopathy; E87.20 Acidosis, unspecified; N39.0 Urinary tract infection, site not specified; N17.9 Acute kidney failure, unspecified; E83.42 Hypomagnesemia; E78.00 Pure hypercholesterolemia, unspecified; Z66 Do not resuscitate; E86.0 Dehydration; G47.33 Obstructive sleep apnea (adult) (pediatric); I12.9 Hypertensive chronic kidney disease with stage 1 through stage 4 chronic kidney disease, or unspecified chronic kidney disease; E66.9 Obesity, unspecified; M85.80 Other specified disorders of bone density and structure, unspecified site; N18.30 Chronic kidney disease, stage 3 unspecified; I95.89 Other hypotension; F03.C0 Unspecified dementia, severe, without behavioral disturbance, psychotic disturbance, mood disturbance, and anxiety; I51.89 Other ill-defined heart diseases; H40.9 Unspecified glaucoma; Z20.822 Contact with and (suspected) exposure to COVID-19; Z88.2 Allergy status to sulfonamides; Z88.8 Allergy status to other drugs, medicaments and biological substances; Z79.899 Other long term (current) drug therapy; Z85.038 Personal history of other malignant neoplasm of large intestine; Z79.01 Long term (current) use of anticoagulants; Z90.49 Acquired absence of other specified parts of digestive tract; Z90.710 Acquired absence of both cervix and uterus; Z98.890 Other specified postprocedural states; Z95.0 Presence of cardiac pacemaker; Z93.3 Colostomy status; Z68.22 Body mass index [BMI] 22.0-22.9, adult; Z79.2 Long term (current) use of antibiotics
CPT/HCPCS: 0241U; 36415; 71045; 80048; 80053; 81001; 82550; 83605; 83735; 83880; 84443; 84484; 85025; 92960; 93005; 93010; 93280; 96365-59; 96366-59; 96372; 96375; 96375-59; 96376; 97116; 97161; 97166; 97535; 99152; 99285-25; A9270; G0378; J0282; J0696; J1644; J2060; J3475; J7030; J7050